=== PATIENT | female | born 1940 | race Two or more races ===

== ENCOUNTER → 2024-04-25 | Outpatient (CLI) | payer OTHER, SELFPAY ==
[2024-04-25 08:37] LABS: Glucose Estimated Average 186 mg/dL (80-131); Hemoglobin A1C 8.1 % Hgb (4.8-6.0)
[2024-04-25 09:27] LABS: Alanine Aminotransferase 15 U/L (10-49); Albumin, Serum 4.7 gm/dL (3.4-4.8); Alkaline Phosphatase 94 U/L (46-116); Anion Gap 10 (7-16); Aspartate Amino Transferase 14 U/L (0-34); BUN/Creatinine Ratio 40 Ratio (12-20); Bilirubin,Total 0.4 mg/dL (0.3-1.2); Blood Urea Nitrogen 28 mg/dL (9-23); Calcium 10.2 mg/dL (8.3-10.6); Calcium (Corrected) 10.2 mg/dL (8.5-10.1); Carbon Dioxide 26.7 mMol/L (20.0-31.0); Cardiac Risk Estimate 2.9 RATIO (3.7-5.6); Chloride 103 mMol/L (98-107); Cholesterol 180 mg/dL (132-200); Creatinine (Component) 0.7 mg/dL (0.6-1.3); Globulin 2.3 gm/dL (2.3-3.5); Glucose 158 mg/dL (74-106); HDL Cholesterol 62 mg/dL (40-60); LDL Cholesterol,Calculated 90 mg/dL (0-130); Osmolality,Calculated 287 (275-295); Potassium 4.5 mMol/L (3.4-5.1); Sodium 140 mMol/L (136-145); Triglycerides 141 mg/dL (30-150); eGFR > 60 See Note
[2024-04-25 09:42] LABS: Creatinine MALB Rnd Ur 18 mg/dL (30-125); Microalbumin Creat Ratio 222 mg/gCrea (<30); Microalbumin, Random Urine 40 mg/L (0-300)
== END | disposition home or self-care (01) ==
PROVIDERS: PCP Family Medicine; Referring Provider Family Medicine; Visit Provider Family Medicine
DX: E11.65 Type 2 diabetes mellitus with hyperglycemia (principal); E78.1 Pure hyperglyceridemia
CPT/HCPCS: 36415; 80053; 80061; 82043; 82570; 83036

== ENCOUNTER → 2024-06-01 | Outpatient (CLI) | payer OTHER, MEDICAID, SELFPAY ==
--- NOTE | 2024-06-01 10:45 | XR_ITS ---
Examination: Retroperitoneal ultrasound, complete Technique: Multiple high resolution grayscale images of the retroperitoneum obtained, including kidneys and bladder. Exam date and time:June 01, 2024 1059 hours INDICATIONS: Right flank pain 2 months, chronic kidney disease stage I diagnosis on laboratory examination FINDINGS: Right kidney 10.3 cm cortex 1.9 cm Midpole cyst 3.7 x 3.8 cm Left kidney 10.7 cm renal cortex 1.9 cm Upper pole cyst 4.1 x 3.8 cm mid to lower pole cyst 4.7 x 4.4 cm Moderate bilateral renal parenchymal scar formation No bladder mass or bladder calculi Bladder prevoid volume 259 cc postvoid volume 208 cc IMPRESSION: Moderate bilateral renal parenchymal scar formation, no hydronephrosis
== END | disposition home or self-care (01) ==
PROVIDERS: PCP Internal Medicine; Referring Provider Internal Medicine; Visit Provider Internal Medicine
DX: N28.89 Other specified disorders of kidney and ureter (principal)
CPT/HCPCS: 76770

== ENCOUNTER → 2024-07-03 | Outpatient (CLI) | payer OTHER, MEDICAID, SELFPAY ==
[2024-07-03 10:31] LABS: Albumin, Serum 4.6 gm/dL (3.4-4.8); Anion Gap 13 (7-16); BUN/Creatinine Ratio 37 Ratio (12-20); Blood Urea Nitrogen 33 mg/dL (9-23); Calcium 10.3 mg/dL (8.3-10.6); Calcium (Corrected) 10.3 mg/dL (8.5-10.1); Carbon Dioxide 27.9 mMol/L (20.0-31.0); Chloride 100 mMol/L (98-107); Creatinine (Component) 0.9 mg/dL (0.6-1.3); Glucose 115 mg/dL (74-106); Osmolality,Calculated 289 (275-295); Potassium 4.3 mMol/L (3.4-5.1); Sodium 141 mMol/L (136-145); eGFR > 60 See Note
[2024-07-03 10:37] LABS: Collection Type, Urine Clean Catch; Squamous Epithelial Cell,Urine 0 /hpf (0-5)
[2024-07-03 11:40] LABS: Bilirubin,Urine Negative (Negative); Blood,Urine Negative (Negative); Clarity,Urine Clear (Clear/Hazy); Color,Urine Lt-Yellow (Lt Yel-Yel); Glucose, Urine 4+ (Negative); Ketones,Urine 1+ (Negative); Leukocyte Esterase,Urine Negative (Negative); Nitrite,Urine Negative (Negative); Protein,Urine Trace (Neg - Trace); RBC,Urine 1 /hpf (0-3); Specific Gravity,Urine 1.022 (1.001-1.035); Urobilinogen,Urine Negative mg/dL (0.0-1.0); WBC,Urine 1 /hpf (0-5)
[2024-07-03 11:42] LABS: Creatinine,Random Urine 73 mg/dL (30-125)
== END | disposition home or self-care (01) ==
LOC: COPL 09:38
PROVIDERS: PCP Internal Medicine; Referring Provider Internal Medicine; Visit Provider Internal Medicine
DX: E11.9 Type 2 diabetes mellitus without complications (principal)
CPT/HCPCS: 36415; 80069; 81001; 82570

== ENCOUNTER 2024-09-15 11:39 | Observation (INO) | payer OTHER, MEDICAID, SELFPAY ==
[2024-09-15 11:53] VITALS: BP 150/79; PULSE 76; RESP 18; TEMP 37; O2SAT 97; BMI 27.6
--- NOTE | 2024-09-15 12:11 | XR_ITS ---
Examination: AP chest single view Technique one AP portable semiupright chest single view Date and time: September 15, 2024 12:48 PM Comparison March 24, 2010 INDICATIONS: Chest pain today. FINDINGS: Normal heart size Lungs are clear. The osseous structures are intact IMPRESSION: No active disease
--- NOTE | 2024-09-15 12:11 | XR_ITS ---
Examination: CTA carotids with intravenous contrast CTA brain, head with intravenous contrast. 2-D sagittal, coronal reconstructions. 3-D reconstructions. Exam date and time: 03/18/2024 1230 hours INDICATIONS: Stroke alert, onset focal neurologic deficit today CTDI: vol (mGy) 3 2 DLP: (mGycm) 437 Technique: Multiple CTA axial brain, head carotid images post intravenous contrast injection 75 cc, [id number]. 2-D sagittal, coronal reconstructions. 3-D reconstructions, 3-D post processing including vascular maximum intensity projection images. Low dose protocols were performed. One or more of the following dose reduction techniques were used; automated exposure control, adjustment of the mA and/or KV according to patient size, use of iterative reconstruction technique. Findings: Thyromegaly with poorly defined bilateral thyroid nodules No significant common carotid carotid bifurcation or internal carotid artery stenoses Dominant left vertebral artery with no critical vertebral artery stenoses in the neck Intracranial vertebral arteries basilar artery serves cerebral branches fill no large vessel occlusions Moderately heavy calcification juxtasellar internal carotid artery with no critical stenoses No cerebral occlusions involving middle cerebral M1 segments or trifurcation vessels as well as anterior cerebral arteries IMPRESSION: No significant neck arterial stenoses No cerebral large vessel arterial occlusions
--- NOTE | 2024-09-15 12:11 | EKG_ITS ---
[facility] Test Date: 2024-09-15 Pat Name: LIZ VIDES Department: Room: - Gender: Female Manager Reporting: : 1940 Requested By: Michelle Miles Order Number: [id number] Reading MD: Michelle Miles Measurements Intervals [place] Rate: 79 P: 43 KS: 175 QRS: 47 QRSD: 89 T: 64 QT: 367 QTc: 421 Interpretive Statements SINUS RHYTHM SEPTAL MYOCARDIAL INFARCTION , OF INDETERMINATE AGE [40+ ms Q WAVE IN V1/V2] No previous ECG available for comparison /store/S0/[id number].pdf
--- NOTE | 2024-09-15 12:11 | XR_ITS ---
Examination: CT brain head without contrast. 2-D sagittal coronal reconstructions Date and time of exam:September 15, 2024 1214 hours INDICATIONS: Stroke alert, onset focal neurologic deficit today including slurred speech beginning 9:00 AM CTDI: vol (mGy):45.9 DLP: (mGycm):924 Technique: Multiple CT axial sections of the brain have been obtained, 5 mm slice thickness. Contrast has not been administered. 2-D sagittal, coronal reconstructions have been obtained Low dose protocols were performed. One or more of the following dose reduction techniques were used; automated exposure control, adjustment of the mA and/or KV according to patient size, use of iterative reconstruction technique. Findings: No significant ventricular enlargement. Intra-axial or extra-axial hemorrhage density is not seen. No mass effect or midline shift Basal cisterns are not remarkable. Fourth ventricle is midline. Cranial vault intact. Impression: Negative for acute hemorrhage, mass effect or midline shift
--- NOTE | 2024-09-15 12:14 | PD.EDAMS ---
Altered Mental Status RME/HPI General Chief Complaint: Altered Mental Status Stated Complaint: sent by primary Kulwinder cunningham stroke Time Seen by Provider: 09/15/24 11:55 Arrival date/time: 09/15/24 11:39 RME / HPI RME / HPI narrative: 83-year-old female patient with significant history of CVA, diabetes mellitus, hypertension diabetes mellitus, was brought in by family for evaluation regarding possible strokelike symptoms. Patient last well-known time was 9:00 this morning, has expressive aphasia, associated with worsening facial droop on the right side. Patient denies any upper or lower extremity weakness. Patient also complained of headache severity moderate since 9:00 this morning. Currently not taking any blood thinner. She had a stroke more than 20 years ago according to the family. Stroke alert was initiated right away. Patient denies any recent fall or head trauma. Denies any fever. Denies any neck pain. Denies any chest pain. Related Data Allergies Allergy/AdvReac Type Severity Reaction Status Date / Time No Known Drug Allergies Allergy Verified 09/15/24 11:47 Review of Systems Review of Systems Narrative Review of Systems: Review of system reviewed and within normal limits except mentioned in HPI ED Exam Narrative Physical exam: VITAL SIGNS: Reviewed. GENERAL APPEARANCE: Alert and interactive, follows commands, no acute distress, mild expressive aphasia HEAD AND FACE: Right-sided facial droop ENT: PERRL, pink conjunctivitis, eyelid no trauma, Mucous membrane moist. NECK: Supple, nontender, no nuchal rigidity. CHEST: No tenderness, no crepitus, no paradoxical movement, no retractions. LUNGS: Clear, well ventilated, symmetric, no rales, no wheezing, no ronchi, no stridor, good breath sounds bilaterally. HEART: Regular rate, regular rhythm, no murmur, no gallops. ABDOMEN: Soft, positive bowel sounds, nondistended, no guarding, nontender, no rebound, no masses, RECTAL: Deferred. GENITAL: Deferred. NEUROLOGICAL: Gross motor function intact sensory function intact, Appropriate for age. MUSCULOSKELETAL: low back nontender, full range of motion. EXTREMITIES: Nontender, full range of motion. SKIN: Color pink, dry, no rash, no lacerations, no abrasions, no contusions. LYMPHATICS: Deferred. Course Quality Measures none Orders Category Date Time Status Bedside Blood Glucose NOW Care 09/15/24 12:11 Active COVID-19 Screening Questionnaire NOW Care 09/15/24 14:13 Active Applied Psychology Teacher NOW Care 09/15/24 12:11 Active Continuous Pulse Oximetry NOW Care 09/15/24 12:11 Active Decision to Admit X1 Care 09/15/24 14:13 Active EKG (ED ONLY) *Do not use* NOW Care 09/15/24 12:11 Completed In and Out Catheter NEEDED Care 09/15/24 12:11 Active Insert IV NOW Care 09/15/24 12:11 Active NIH Stroke Scale now Care 09/15/24 12:11 Active NPO NOW Care 09/15/24 12:11 Active Nurse Swallow Screen x1 Care 09/15/24 12:11 Active Consult to Neurology / Tele-Neurology Routine Cons 09/15/24 12:[address] angio stroke protocol Stat Exams 09/15/24 12:[address] stroke protocol Stat Exams 09/15/24 12:11 Completed EKG (ED Only) Stat Exams 09/15/24 12:11 Draft XR chest 1V portable Stat Exams 09/15/24 12:11 Completed CBC Stat Lab 09/15/24 12:28 Completed Comprehensive Metabolic Panel Stat Lab 09/15/24 12:28 Completed Drug Screen,Urine Stat Lab 09/15/24 12:11 Ordered HCG Titer if Positive Stat Lab 09/15/24 12:28 Completed Magnesium Stat Lab 09/15/24 12:28 Completed Partial Thromboplastin Time Stat Lab 09/15/24 12:28 Completed Prothrombin Time with INR Stat Lab 09/15/24 12:28 Completed Troponin I Stat Lab 09/15/24 12:28 Completed Urinalysis Stat Lab 09/15/24 12:11 Ordered Urine Culture Stat Lab 09/15/24 12:11 Ordered Acetaminophen Tab [Tylenol ES Tab] Med 09/15/24 14:03 Discontinued 1,000 mg PO X1 ONE Aspirin [Ecotrin] Med 09/15/24 14:00 Discontinued 81 mg PO X1 ONE Labetalol IV [Trandate IV] Med 09/15/24 12:10 Active 10 mg IVP Q15M PRN Ondansetron Inj [Zofran Inj] Med 09/15/24 12:10 Active 4 mg IVP Q4HR PRN Oxygen Delivery NOW RT 09/15/24 12:11 Active Vital Signs Vital signs: Vital Signs Temperature 98.6 F 09/15/24 11:53 Pulse Rate 76 09/15/24 11:53 Respiratory Rate 18 09/15/24 11:53 Blood Pressure 150/79 H 09/15/24 11:53 Pulse Oximetry (%) 97 09/15/24 11:53 Oxygen Delivery Method Room Air 09/15/24 11:53 Altered Mental Status MDM Narrative MDM Narrative:: 83-year-old female patient with significant history of CVA, diabetes mellitus, hypertension , was brought in by family for evaluation regarding possible strokelike symptoms. Patient last well-known time was 9:00 this morning, has expressive aphasia, associated with worsening facial droop on the right side. Patient denies any upper or lower extremity weakness. Patient also complained of headache severity moderate since 9:00 this morning. Currently not taking any blood thinner. She had a stroke more than 20 years ago according to the family. Stroke alert was initiated right away. Patient denies any recent fall or head trauma. Denies any fever. Denies any neck pain. Denies any chest pain. EKG as interpreted by me shows sinus rhythm, ventricular to 79 bpm, OH interval 175 MS, no ST segment elevation depression noted. CT scan of the head came back unremarkable. CT angiogram of the head and neck also came back normal. CBC no leukocytosis noted CMP unremarkable. I personally reviewed and interpreted the x-ray of this patient. There is no acute abnormalities found, no infiltrates no pneumothorax no hemothorax normal chest x-ray. Review of other structures was without significant abnormal findings also. I additionally reviewed the radiologist report and agree with the interpretation. I spoke with teleneurologist, who advised me to give this patient 81 mg of aspirin. Patient is not a candidate for thrombolytic at this time. Patient was also given Tylenol for headache Plan care discussed with the family who agrees to be admitted for stroke workup. Patient data External records reviewed:: None Clinical information provided by:: patient and family Social determinants that could affect healthcare access:: none Patient has the following chronic illnesses:: History of CVA, diabetes mellitus hypertension How is presenting disease/condition affected by chronic disease/condition?: exacerbated by Evaluation data The following diagnostics were reviewed and interpreted by me:: lab results, radiology exam(s) and EKG tracing(s) Lab and/or radiology exams considered but not ordered:: None Interpretation Summary: See results MDM Medications / Prescriptions Medications or Prescriptions considered but not ordered:: None Medication administrations:: Medication Administration History Labetalol HCl (Labetalol Inj 5 Mg/Ml Vial 20 Ml) 10 mg IVP Q15M PRN PRN Reason: HYPER Ondansetron HCl (Ondansetron Inj 2 Mg/Ml Inj 2 Ml) 4 mg IVP Q4HR PRN PRN Reason: NAUSEA OR VOMITING Stop: 10/15/24 12:09 Discontinued Medications Acetaminophen (Acetaminophen 500 Mg Tablet) 1,000 mg PO X1 ONE Stop: 09/15/24 14:04 Last Admin: 09/15/24 14:10 Dose: 1,000 mg Documented By: CROW Aspirin (Aspirin Ec 81 Mg Tabec) 81 mg PO X1 ONE Stop: 09/15/24 14:01 Last Admin: 09/15/24 14:10 Dose: 81 mg Documented By: CROW Labetalol, aspirin Consultations Consultation(s) initiated? (list below): No Diagnosis Differential diagnosis altered mental status: altered mental status and delirium Most likely diagnosis given after review of the tests above:: Confusion Admission Indicated Admission indicated?: indicated Admission Request Was there a request for admission?: Yes Admission Attestation Admission request attestation: Discussed case with Hospitalist service regarding admission. Discussed patients ED course, exam findings, labs, and radiology results. The Hospitalist [agrees, to accept the patient for admission. Disposition Plan Disposition Plan: Admit Discharge Plan Plan Patient Disposition: Admit Acute Care w/in Hospital Discharge Disposition comment: Stable Prescriptions/Referrals Referrals: No Primary/Family,Physician [Primary Care Provider] - In 1 week Problem List Clinical Impression: Confusion Patient/Caregiver Discharge Instructions Print Language: Greenlandic Stand Alone Forms: Kristina Award Info., Patient Portal Info Letter
[2024-09-15 12:35] LABS: Basophils # (Auto) 0.0 Thou/mm3 (0.0-0.2); Basophils % (Auto) 0 % (0-2.5); Eosinophils # (Auto) 0.1 Thou/mm3 (0.0-0.5); Eosinophils % (Auto) 2 % (0-10); Hematocrit 39.5 % (36.0-46.0); Hemoglobin 13.5 g/dL (12.0-16.0); Immature Granulocytes Auto 0.03 Thou/mm3 (0.00-0.00); Lymphocytes # (Auto) 2.4 Thou/mm3 (1.0-4.8); Lymphocytes % (Auto) 34 % (10-50); Mean Corpuscular HGB Conc 34.2 g/dl (31.0-37.0); Mean Corpuscular Hemoglobin 27.0 pg (25.0-35.0); Mean Corpuscular Volume 79 fL (80-100); Monocytes # (Auto) 0.5 Thou/mm3 (0.0-0.8); Monocytes % (Auto) 8 % (0-12); Neutrophils # (Auto) 3.9 Thou/mm3 (1.8-7.7); Neutrophils % (Auto) 56 % (37-80); Nucleated Red Blood Cell # 0.00 Thou/mm3 (0.00-0.00); Nucleated Red Blood Cell % 0 /100 WBC (0); Platelet Count 302 Thou/mm3 (140-440); RDW Standard Deviation 43.0 fL (36.4-46.3); Red Blood Count 5.00 Miln/mm3 (4.00-5.20); White Blood Count 7.0 Thou/mm3 (3.6-11.0)
[2024-09-15 13:00] LABS: Alanine Aminotransferase 12 U/L (10-49); Albumin, Serum 4.3 gm/dL (3.4-4.8); Albumin/Globulin Ratio 2.0 (1.2-2.2); Alkaline Phosphatase 71 U/L (46-116); Anion Gap 16 (7-16); Aspartate Amino Transferase 19 U/L (0-34); BUN/Creatinine Ratio 26 Ratio (12-20); Bilirubin,Total 0.6 mg/dL (0.3-1.2); Blood Urea Nitrogen 26 mg/dL (9-23); Calcium 10.0 mg/dL (8.3-10.6); Calcium (Corrected) 10.0 mg/dL (8.5-10.1); Carbon Dioxide 23.9 mMol/L (20.0-31.0); Chloride 102 mMol/L (98-107); Creatinine (Component) 1.0 mg/dL (0.6-1.3); Estimated Creatinine Clearance 36.9 mL/min (>60); Globulin 2.2 gm/dL (2.3-3.5); Glucose 133 mg/dL (74-106); INR 1.0 (0.9-1.3); Magnesium 1.6 mg/dL (1.6-2.6); Osmolality,Calculated 289 (275-295); Partial Thromboplastin Time 27.2 Seconds (22.0-36.0); Potassium 4.0 mMol/L (3.4-5.1); Prothrombin Time 10.7 Seconds (9.0-12.2); Sodium 142 mMol/L (136-145); Total Protein 6.5 gm/dL (5.7-8.2); Troponin I < 0.002 ng/mL (0.0-0.045); eGFR 57 See Note
[2024-09-15 13:32] LABS: HCG Titer if Positive Negative
--- NOTE | 2024-09-15 13:49 | ESCONSULT_ITS ---
Tele Neuro Consultation Consultation Date 09/15/24 Most Recent Vital Signs Last Vital Signs Temp 98.6 F 09/15/24 11:53 Pulse 76 09/15/24 11:53 Resp 18 09/15/24 11:53 BP 150/79 H 09/15/24 11:53 Pulse Ox 97 09/15/24 11:53 O2 Del Method Room Air 09/15/24 11:53 Laboratory-Coagulation Panel PT 10.7 Seconds (9.0-12.2) 09/15/24 12:28 INR 1.0 (0.9-1.3) 09/15/24 12:28 APTT 27.2 Seconds (22.0-36.0) 09/15/24 12:28 Consultation Narrative [facility] Tele[facility]urology Consult Services Patient Name:???melvi ignacio Date of :???1940 Date of Service:???09/15/2024 12:09:24 Diagnosis:?F05.8 - Other delirium Impression: ?83 year old female who presents to the hospital because of confusion. Presentation may be due to underlying metabolic or infectious encephalopathy. Our recommendations are outlined below. Recommendations: ? Stroke/Telemetry Floor ? Neuro Checks (Q4) ? Bedside Swallow Eval ? DVT Prophylaxis ? IV Fluids, Normal Saline ? Head of Bed 30 Degrees ? Euglycemia and Avoid Hyperthermia (PRN Acetaminophen) ? Initiate or continue Aspirin 81 MG daily Sign Out: ? Discussed with Emergency Department Provider Advanced Imaging: CTA Head and Neck Completed. LVO:No Patient is not a candidate for SHERRY Metrics: Last Known Well: 09/15/2024 08:30:00 Dispatch Time: 09/15/2024 12:09:24 Arrival Time: 09/15/2024 11:39:00 Initial Response Time: 09/15/2024 12:14:17Symptoms: confusion. Initial patient interaction: 09/15/2024 12:18:00 NIHSS Assessment Completed: 09/15/2024 12:44:54Patient is not a candidate for Thrombolytic. Thrombolytic Medical Decision: 09/15/2024 12:44:56Patient was not deemed candidate for Thrombolytic because of following reasons: Stroke severity too mild (non-disabling) . CT Head: I personally reviewed all the CT images that were available to me and it showed: no acute hemorrhage or large territory infarct. Primary Provider Notified of Diagnostic Impression and Management Plan on: 09/15/2024 12:49:51 History of Present Illness:Patient is a 83 year old Female. Patient was brought by private transportation with symptoms of confusion. 83 year old female with a history of atrial fibrillation, CAD, DM II, and prior stroke who presents to the hospital because of confusion. This morning patient felt normal and was seen cleaning the garden floor around 8:30. At 9am family noticed that patient had left the stove on. She also seemed to be speaking and not making sense. On teleneuro evaluation she had some trouble understanding tasks but she was able to name things and describe a picture without difficulty. She did not have any focal weakness, numbness, visual field defect. or limb ataxia. Past Medical History: ?Hypertension ?Diabetes Mellitus ?Stroke Medications: No Anticoagulant use? No Antiplatelet use Reviewed EMR for current medications Allergies:? Reviewed Social History: Drug Use: No Family History: There is no family history of premature cerebrovascular disease pertinent to this consultation ROS : 14 Points Review of Systems was performed and was negative except mentioned in HPI. Past Surgical History: There Is No Surgical History Contributory To Today?s Visit Examination: BP(150/79),?Pulse(76),?Blood Glucose(140) 1A: Level of Consciousness - Alert; keenly responsive?+ 0 1B: Ask Month and Age - Both Questions Right?+ 0 1C: Blink Eyes & Squeeze Hands - Performs Both Tasks?+ 0 2: Test Horizontal Extraocular Movements - Normal?+ 0 3: Test Visual Yost - No Visual Loss?+ 0 4: Test Facial Palsy (Use Grimace if Obtunded) - Minor paralysis (flat alexandre olabial fold, smile asymmetry)?+ 1 5A: Test Left Arm Motor Drift - No Drift for 10 Seconds?+ 0 5B: Test Right Arm Motor Drift - No Drift for 10 Seconds?+ 0 6A: Test Left Leg Motor Drift - No Drift for 5 Seconds?+ 0 6B: Test Right Leg Motor Drift - No Drift for 5 Seconds?+ 0 7: Test Limb Ataxia (FNF/Heel-Unger) - No Ataxia?+ 0 8: Test Sensation - Normal; No sensory loss?+ 0 9: Test Language/Aphasia - Normal; No aphasia?+ 0 10: Test Dysarthria - Normal?+ 0 11: Test Extinction/Inattention - No abnormality?+ 0 NIHSS Score:?1 NIHSS Free Text :?facial droop is from old stroke. Pre-Morbid Modified Sunspot Scale:1 Points = No significant disability despite symptoms; able to carry out all usual duties and activities Spoke with :?Dr. Segovia This consult was conducted in real time using interactive audio and video technology. Patient was informed of the technology being used for this visit and agreed to proceed. Patient located in hospital and provider located at home/office setting. Patient is being evaluated for possible acute neurologic impairment and high probability of imminent or life-threatening deterioration. I spent total of 29 minutes providing care to this patient, including time for face to face visit via telemedicine, review of medical records, imaging studies and discussion of findings with providers, the patient and/or family. Dr Julissa Barragan [facility] For Inpatient follow-up with [facility] physician please call [facility] at . As we are not an outpatient service for any post hospital discharge needs please contact the hospital for assistance. If you have any questions for the [facility] physicians or need to re consult for clinical or diagnostic changes please contact us via [facility] at .
[2024-09-15 14:00] VITALS: BP 188/88; PULSE 78; RESP 16; TEMP 36.9; O2SAT 96
[2024-09-15] MEDS: ASPIRIN EC 81 MG TABEC PO (14:10)
[2024-09-15] MEDS: ACETAMINOPHEN 500 MG TABLET 1000 MG PO (14:10)
--- NOTE | 2024-09-15 15:28 | PC.CC ---
Patient is a 83 year-old female who presents to the hospital for possible stroke. DOROTEOWKellie and REHABILITATION TECH Student Ciarra made tzek-[id number] contact with patient. ASW introduced self, role, and reason for visit. Patient appeared alert and oriented to self, location, and situation. Patient provided consent for REHABILITATION TECH to remain in the room during assessment. Patient was pleasant and engaged in initial assessment. Patient confirmed information on demographics and reports to living with her , Naga Marin and daughter, Karishma Hendrix. Patient reports that in the event she is unable to make her own medical decisions her daughter, Simona Hendrix would be her medical decision maker. Patient reports that prior to todays incident she was able to ambulate independently and complete her own ADLs. Patient does not require any DME. Patient's primary provider is Speedy York and her pharmacy of choice is [facility]. Upon discharge patient plance to return home. support services manager to follow up with any discharge needs.
--- NOTE | 2024-09-15 15:38 | ECHO_ITS ---
Transthoracic Echo Report Ht (in): 60 Wt (lb): 141 Exam Location: Echo Lab Status: Inpatient Carriage Feeder: Xochitl Deluna Indications: Procedure Performed: BP: 166 / 85 HR: 80 Technical Quality: Technically difficult study MEASUREMENTS (Male / Female) Normal Values 2D ECHO LV Diastolic Diameter PLAX 4.4 cm 4.2 - 5.9 / 3.9 - 5.3 cm LV Systolic Diameter PLAX 3.0 cm IVS Diastolic Thickness 0.9 cm 0.6 - 1.0 / 0.6 - 0.9 cm LVPW Diastolic Thickness 1.0 cm 0.6 - 1.0 / 0.6 - 0.9 cm LV Relative Wall Thickness 0.4 LVOT Diameter 1.7 cm Aortic Root Diameter 2.9 cm LA Volume Index 17.6 cm?/m? 16 - 28 cm?/m? M-MODE Aortic Root Diameter MM 2.6 cm LA Systolic Diameter MM 2.5 cm LA Ao Ratio MM 1.0 AV Cusp Separation MM 1.5 cm DOPPLER AV Peak Velocity 123.5 cm/s AV Peak Gradient 6.1 mmHg AV Mean Gradient 4.0 mmHg AV Velocity Time Integral 33.8 cm AI Peak Velocity 163.0 cm/s AI Peak Gradient 10.6 mmHg AI Pressure Half Time 748.0 ms LVOT Peak Velocity 93.0 cm/s LVOT Peak Gradient 3.5 mmHg LVOT Velocity Time Integral 21.9 cm LVOT Cardiac Index 2387.9 cm?/min?m? AV Area Cont Eq vti 1.5 cm? AV Area Cont Eq pk 1.7 cm? MV Area PHT 3.6 cm? Mitral E Point Velocity 57.7 cm/s Mitral A Point Velocity 98.5 cm/s Mitral E to A Ratio 0.6 LV E' Lateral Velocity 7.7 cm/s Mitral E to LV E' Lateral Ratio 7.5 LV E' Septal Velocity 5.8 cm/s Mitral E to LV E' Septal Ratio 10.0 TR Peak Velocity 247.0 cm/s TR Peak Gradient 24.4 mmHg FINDINGS Left Ventricle Normal left ventricular size, wall thickness, systolic function with no obvious regional wall motion abnormalities. The ejection fraction is visually estimated at 65% There is grade I diastolic dysfunction of the left ventricle (impaired relaxation pattern). Right Ventricle The right ventricle is normal in size and systolic function. The estimated right ventricular systolic pressure, 29 mmHg. RAP 5. Left Atrium The left atrium is normal by two-dimensional, color flow and Doppler imaging with no structural abnormalities, no thrombus formation present. Right Atrium The right atrium is normal by two-dimensional imaging, color flow and Doppler imaging with no structural abnormalities, no thrombus formation present. Atrial Septum The interatrial septum appears normal with no evidence of a shunt. Aorta The aorta is normal by two-dimensional, color flow and Doppler interrogation. Mitral Valve Mild mitral annular calcification. Trace mitral regurgitation. Aortic Valve Trace aortic valve regurgitation. Tricuspid Valve The tricuspid valve is normal by two-dimensional, color flow and Doppler interrogation. There is mild tricuspid valve regurgitation. Pulmonic Valve The pulmonic valve is not well visualized. There is no significant pulmonic valve regurgitation. Vessels The pulmonary artery appears normal. The inferior vena cava pulmonary and hepatic veins appear normal. Pericardium The pericardium is normal by two-dimensional imaging. There is no significant pericardial effusion. CONCLUSIONS Indication: stroke Normal left ventricular size and function. Approximate ejection fraction is 65%. Negative bubble study. No intracardiac shunts PFO detected There is grade I diastolic dysfunction. The RV is normal in size and systolic function. T Mild MAC with trivial MR Mild TR. mild AR Mayuri Mcduffie (Electronically Signed) Final Date: 16 September 2024 18:27
[2024-09-15 15:48] VITALS: BP 166/85; PULSE 80; RESP 18; TEMP 36.6; O2SAT 98
--- NOTE | 2024-09-15 15:57 | ESHP_ITS ---
<Statement entered by Jeffery Lipscomb MD - 09/15/24 23:01> Patient seen and examined at bedside. I discussed and supervised with the technical internship physician who took care of this patient. I personally saw and examined the patient. I agree with most of the assessment and plan. Patient presented from home due to acute aphasia and confusion per family. 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 At time of exam patient was alert and properly responsive. Neurology consulted. Head CT negative, MRI pending. Started on Lipitor and aspirin. Admitted for further stroke workup, including echo with bubble study, routine tests, PT/OT/ST. BP elevated, within range of permissive HTN. Report of afib on teleneuro report, although patient denies at bedside. No other known history of afib, not on anticoags or rate/rhythm control meds. Will monitor on tele. Plan of care discussed with attending Dr. Regan. Jeffery Lipscomb MD PGY-2 Documentation for date of: 09/15/24 HPI History of Present Illness Chief complaint: Confusion and speech difficulty - rule out acute stroke History of present illness: 83-year-old female with a history of remote CVA (20+ years ago), hypertension, diabetes mellitus type 2, hyperlipidemia, and possible atrial fibrillation, was brought in by family for evaluation of acute confusion and expressive aphasia. She was last seen at her baseline around 08:30 AM while cleaning around the garden. Around 09:00 AM, the family noticed she left the stove on and began speaking incoherently. They described her as having difficulty forming appropriate words and sentences, needing repetition or rephrasing to understand simple instructions. Her speech remained altered throughout the morning. They also noted a right-sided facial droop, though this is reportedly chronic and consistent with her prior stroke. She complained of a moderate headache that started around the same time as her confusion. There were no reported visual field deficits, extremity weakness, numbness, dizziness, falls, trauma, or seizures. She denied chest pain or palpitations. Her family confirmed this episode was different from any prior events and prompted immediate ED evaluation. ED Course: On arrival to the ED, a stroke alert was activated due to concerns for acute neurologic symptoms with last known well at 08:30 AM. On exam, she was alert with mild expressive aphasia and chronic right facial droop. NIH Stroke Scale was 1, with the only finding being the facial droop, which was determined to be baseline by teleneurology. She had no focal motor deficits, no sensory loss, and no signs of limb ataxia. A non-contrast CT head and CTA head/neck were obtained and were both unremarkable, showing no acute infarct, hemorrhage, or large vessel occlusion. Labs including CBC, CMP, coagulation panel, and blood glucose were within normal limits. EKG showed normal sinus rhythm with no ischemic changes. She was evaluated by teleneurology, who recommended initiating aspirin 81 mg and admission for stroke workup. The patient was not deemed a candidate for thrombolytics due to mild, non-disabling symptoms. She was given Tylenol for headache relief. Family was updated and agreed with the plan to admit for further evaluation and monitoring. ROS: * Neuro: Expressive aphasia, confusion, headache * All other systems reviewed and negative unless noted above Past Medical History: * History of CVA per patient about 20 years ago * Hypertension * Diabetes Mellitus Type 2 * Hyperlipidemia * Possible Atrial Fibrillation, not confirmed Medications: * Simvastatin 20 mg * Losartan 100 mg * Bumetanide 1 mg * Metformin 1000 mg * Jardiance * Kerendia * Ozempic (No aspirin or anticoagulants prior to admission per patient) Allergies: NKDA Surgical History: Non-contributory Family History: No premature cardiovascular disease Social History: Denies smoking, alcohol, or drug use Exam Vital Signs Temp Pulse Resp BP Pulse Ox O2 Del Method 97.9 F 80 18 166/85 H 98 Room Air 09/15/24 15:48 09/15/24 15:48 09/15/24 15:48 09/15/24 15:48 09/15/24 15:48 09/15/24 15:48 Narrative Exam General: Elderly female, alert, mildly confused, cooperative Neuro: Alert, mild expressive aphasia, chronic right nasolabial flattening, CN II?XII grossly intact, no focal motor/sensory deficits, no ataxia CV: RRR, no murmurs Resp: Clear to auscultation GI: Soft, non-tender, non-distended Skin: Warm, dry, intact Extremities: Full ROM, no edema Psych: Delayed responses but appropriate affect Results: Labs 09/16/24 05:10 09/16/24 05:10 Labs: Short CBC 09/15/24 Range/Units 12:28 WBC 7.0 (3.6-11.0) Thou/mm3 Hgb 13.5 (12.0-16.0) g/dL Hct 39.5 (36.0-46.0) % Plt Count 302 (140-440) Thou/mm3 BMP 09/15/24 12:28 Sodium 142 Potassium 4.0 Chloride 102 Carbon Dioxide 23.9 BUN 26 H Creatinine 1.0 Glucose 133 H Calcium 10.0 Cardiac Enzymes 09/15/24 Range/Units 12:28 Troponin I < 0.002 (0.0-0.045) ng/mL Liver Function 09/15/24 Range/Units 12:28 Total Bilirubin 0.6 (0.3-1.2) mg/dL AST 19 (0-34) U/L ALT 12 (10-49) U/L Alkaline Phosphatase 71 (46-116) U/L Albumin 4.3 (3.4-4.8) gm/dL Quality Measures Quality Measures none Advance care planning discussed with:: patient and child (grandchild) Medications Home Medications and Allergies Allergies Allergy/AdvReac Type Severity Reaction Status Date / Time No Known Drug Allergies Allergy Verified 09/15/24 11:47 Visit Medications Acetaminophen (Acetaminophen 325 Mg Tablet) 650 mg PO Q6H PRN PRN Reason: Fever >100.4 Stop: 10/15/24 15:31 Acetaminophen (Acetaminophen 325 Mg Tablet) 650 mg PO Q6H PRN PRN Reason: PAIN SCALE 1-3 (mild Stop: 10/15/24 15:31 Hydrocodone Bitart/Acetaminophen (Hydrocodone/Apap 5/325 Tablet) 1 tab PO Q4HR PRN PRN Reason: PAIN SCALE 4-6 (Moderate Stop: 09/20/24 15:31 Aspirin (Aspirin Ec 81 Mg Tabec) 81 mg PO QDAY [facility] Stop: 10/16/24 08:59 Heparin Sodium (Porcine) (Heparin Sod Inj 5000 Unit/Ml Vial) 5,000 unit SC Q8HR [facility] Stop: 09/29/24 21:59 Sodium Chloride (Ns) 1,000 mls @ 75 mls/hr IV .[id number] [facility] Stop: 10/15/24 15:44 Labetalol HCl (Labetalol Inj 5 Mg/Ml Vial 20 Ml) 10 mg IVP Q15M PRN PRN Reason: HYPER Ondansetron HCl (Ondansetron Inj 2 Mg/Ml Inj 2 Ml) 4 mg IVP Q4HR PRN PRN Reason: NAUSEA OR VOMITING Stop: 10/15/24 12:09 Sennosides (Senna Tablet) 1 tab PO QDAY PRN; Protocol PRN Reason: constipation Stop: 10/15/24 15:31 Discontinued Medications Acetaminophen (Acetaminophen 500 Mg Tablet) 1,000 mg PO X1 ONE Stop: 09/15/24 14:04 Last Admin: 09/15/24 14:10 Dose: 1,000 mg Aspirin (Aspirin Ec 81 Mg Tabec) 81 mg PO X1 ONE Stop: 09/15/24 14:01 Last Admin: 09/15/24 14:10 Dose: 81 mg Assessment & Plan Plan 83F with remote CVA, HTN, DM2 presenting with acute-onset confusion, expressive aphasia, and new right facial droop. Imaging negative, NIHSS 1. Not a candidate for tPA. #Altered Mental Status / Possible Acute Stroke 83-year-old female with history of HTN, DM2, and prior remote CVA presenting with acute confusion, expressive aphasia, and new right facial droop. CT head and CTA head/neck showed no acute hemorrhage or large vessel occlusion. NIHSS score: 1. She was not a candidate for thrombolytics due to last known well >4.5 hours prior to evaluation and non-disabling symptoms. Teleneurology and in-house neurology (Dr. Smith) were consulted. Facial droop and aphasia were confirmed to be new. She was started on aspirin 81 mg daily and admitted to telemetry for monitoring. Her CHADS2-VASc score is 5 (age >75 = 2, female = 1, HTN = 1, DM2 = 1), indicating high risk for cardioembolic stroke. No home anticoagulation or antiplatelet prior to admission. Plan: * Admit to telemetry for stroke monitoring * Neuro checks Q4H * DVT prophylaxis with Lovenox 40 mg SC daily * Head of bed 30? * Maintain permissive hypertension x24 hrs ? hold home antihypertensives unless BP >220/120 * Tylenol PRN for headache and fever prevention * Maintain euglycemia ? hold metformin and Ozempic if needed * Start aspirin 81 mg daily * Start atorvastatin (Lipitor) 40 mg nightly * A1c pending; lipid panel: triglycerides 126, LDL pending; LDL goal <70 * TSH normal * MRI brain pending to assess for ischemia not seen on CT * Echocardiogram to evaluate for embolic source (e.g., AFib, LV thrombus) * PT/OT evaluations * Speech therapy for aphasia and bedside swallow screen * Continue to follow neurology recommendations #CVA, history per patient 22-year-old stroke with full functional recovery Plan: * Secondary prevention: lipid panel, A1c, lifestyle counseling * Echo + telemetry to assess for embolic source #Hypertension On losartan 100 mg BP 166/85 in ED Plan: * Hold meds for 24 hours * Allow permissive hypertension * Monitor BP #Diabetes Mellitus Type 2 On metformin, Jardiance, Ozempic BG 140 Plan: * Start inulin sliding scales * Monitor glucose * Hold metformin if contrast repeated or KIP develops * Check A1c #Hyperlipidemia * Start lipitor 40 mg hs * Recheck lipid panel #Complex Migraine Moderate intensity, started with neurologic symptoms Plan: * Continue Tylenol PRN * Monitor for worsening Health Maintenance * Disposition: Stroke unit admission * Diet: Regular if bedside swallow cleared * DVT prophylaxis: SCDs * GI prophylaxis: * Code status: Full ----- Plan discussed with attending physician Dr. Regan and senior resident Dr. Francis MD PGY-1 Internal Medicine Attending Provider Attestation/Addendum I, Danna Regan DO, attest that I was physically present for the pollack portions of the service and evaluated the patient with the resident and I reviewed and discussed the case with the resident and agree with the resident's findings and plans of care as documented above Patient is an 83-year-old female with past medical history of CVA hypertension, type 2 diabetes, who presented to the ED due to aphasia. Per family member at bedside, patient appeared confused and unable to speak this morning. Patient was subsequently brought to the ED due to concern and aphasia. Stroke alert was called in the ED. CT head was done and showed no acute intracranial findings. Patient's speech appeared to return at baseline, but patient complained of headache and pressure behind her eyes. She denies any changes in vision. She is noted to have a right facial droop that appears to be chronic per family patient denies any history of migraines otherwise. Patient was able to answer my questions appropriately on exam. Muscle strength is 5/5 in all 4 extremities. Gross sensation intact. Will admit to telemetry for further workup of acute CVA. Will place patient on aspirin and statin. will place patient on cardiac monitoring and obtain echocardiogram as patient has questionable history of arrhythmia. Will obtain MRI neurology recommendations.
[2024-09-15 16:06] LABS: Collection Type, Urine Clean Catch; Squamous Epithelial Cell,Urine 0 /hpf (0-5)
[2024-09-15 16:15] LABS: Bilirubin,Urine Negative (Negative); Blood,Urine Negative (Negative); Clarity,Urine Clear (Clear/Hazy); Color,Urine Colorless (Lt Yel-Yel); Glucose, Urine 4+ (Negative); Ketones,Urine 1+ (Negative); Leukocyte Esterase,Urine Negative (Negative); Nitrite,Urine Negative (Negative); PH,Urine 8.0 (5.0-7.0); Protein,Urine Negative (Neg - Trace); RBC,Urine 9 /hpf (0-3); Specific Gravity,Urine 1.036 (1.001-1.035); Urobilinogen,Urine Negative mg/dL (0.0-1.0); WBC,Urine 2 /hpf (0-5)
[2024-09-15] MEDS: SODIUM CHLORIDE 0.9% 1000 ML 1,000 ML 75 ML IV (16:19)
[2024-09-15 16:21] LABS: Amphetamine/Methamp Scrn,U Negative (Negative); Barbiturate Screen,Urine Negative (Negative); Benzodiazepines Screen,Urine Negative (Negative); Benzoylecgonine Screen, Ur Negative (Negative); Fentanyl Screen,Urine Negative (Negative); Opiate Screen,Urine Negative (Negative); THC Screen,Urine Negative (Negative)
--- NOTE | 2024-09-15 16:38 | PD.RESCONSUL ---
HPI Data of Consult Requesting Physician: Danna Regan DO Admitting Provider: Danna Regan DO Attending Provider: Danna Regan DO Primary Care Provider: Physician No Primary/Family Consult Narrative History of present illness: Ms. Delarosa is an 83 y/o woman with PMH CVA (20+ years ago), hypertension, diabetes mellitus type 2, hyperlipidemia, and possible atrial fibrillation, was brought in by family for evaluation of acute confusion and aphasia. LKAW 08:30 AM 09/15. Around 09:00 AM, the family noticed she left the stove on and began speaking incoherently. They described her as having difficulty forming appropriate words and sentences, needing repetition or rephrasing to understand simple instructions. Her speech remained altered throughout the morning. They also noted a right-sided facial droop, though this is reportedly chronic and consistent with her prior stroke. She complained of a moderate headache that started around the same time as her confusion. There were no reported visual field deficits, extremity weakness, numbness, dizziness, falls, trauma, or seizures. She denied chest pain or palpitations. Her family confirmed this episode was different from any prior events and prompted immediate ED evaluation. ED Course: On arrival to the ED, a stroke alert was activated due to concerns for acute neurologic symptoms with last known well at 08:30 AM. On exam, she was alert with mild expressive aphasia and chronic right facial droop. NIHSS 1 (facial droop, chronic, present at baseline). She had no focal motor deficits, no sensory loss, and no signs of limb ataxia. A non-contrast CT head and CTA head/neck were obtained and were both unremarkable, showing no acute infarct, hemorrhage, or large vessel occlusion. Labs including CBC, CMP, coagulation panel, and blood glucose were within normal limits. EKG showed normal sinus rhythm with no ischemic changes. She was evaluated by teleneurology, who recommended initiating aspirin 81 mg and admission for stroke workup. The patient was not deemed a candidate for thrombolytics due to mild, non-disabling symptoms. She was given Tylenol for headache relief. Family was updated and agreed with the plan to admit for further evaluation and monitoring. Patient was evaluated at bedside. She reports no new symptoms. Patient accompanied by son who reports complete resolution of aphasia. Patient denies headache, acute changes in vision, paresthesias, weakness, palpitations, chest pain, abdominal pain. Denies smoking, alcohol, or recreational drug use. Of note, patient started Ozempic 2-3 months ago. cc:: cc: Danna Regan DO Review of Systems Review of Systems Narrative Review of Systems: 14 point review of systems negative other than HPI Exam Vital Signs Temp Pulse Resp BP Pulse Ox O2 Del Method 97.9 F 80 18 166/85 H 98 Room Air 09/15/24 15:48 09/15/24 15:48 09/15/24 15:48 09/15/24 15:48 09/15/24 15:48 09/15/24 15:48 Narrative Exam General: No acute distress, well nourished Eye: PERRL, EOMI, normal conjunctiva, no scleral icterus HENT: Normocephalic, atraumatic, hearing intact to conversation at normal volume, moist oral mucosa Neck: Supple, non-tender, no JVD, no lymphadenopathy Lungs: Non-labored respirations, symmetric chest rise Heart: Peripheral pulses intact bilaterally Abdomen: Soft, non-tender, non-distended Musculoskeletal: Normal range of motion and strength Skin: Skin is warm, dry, no rashes or lesions. Psychiatric: Cooperative, appropriate mood and affect Neurologic: Mental status: Orientation: AOx2 Communication: Patient is cooperative and can follow simple instructions Language: Speech fluent, normal rate and volume, comprehension intact Cranial nerves: CN II: Visual florence intact CN III: Pupils equal, round, and reactive to light CN III, IV, : No gaze deviation, no nystagmus Horizontal pursuit: intact Vertical pursuit: intact Ptosis: none CN V: Facial sensation to light touch intact bilaterally at the forehead, cheeks, and jaw line CN VII: Right nasolabial flattening (chronic) CN VIII: Able to hear and respond to conversation at normal volume, intact to finger rub CN IX, X: Palate elevation symmetric, uvula midline CN XI: Head turn and shoulder shrug strong, symmetric bilaterally CN XII: Normal tongue protrusion without deviation, no fasciculations Motor: Normal bulk and tone No atrophy No abnormal movements or fasciculations Muscle strength: Shoulder abduction: R 5/5 L 5/5 Elbow flexion: R 5/5 L 5/5 Elbow extension: R 5/5 L 5/5 Hip flexion: R 5/5 L 5/5 Hip extension: R 5/5 L 5/5 Sensory: RUE: Light touch intact LUE: Light touch intact RLE: Light touch intact LLE: Light touch intact Reflexes: Biceps (C5-6): R 2+ L 2+ Brachioradialis (C5-6): R 2+ L 2+ Triceps (C7-8): R 2+ L 2+ Patellae (L3-4): R 2+ L 2+ Achilles (S1-2):R 2+ L 2+ Results Labs 09/16/24 05:10 09/16/24 05:10 Labs: Short CBC 09/15/24 Range/Units 12:28 WBC 7.0 (3.6-11.0) Thou/mm3 Hgb 13.5 (12.0-16.0) g/dL Hct 39.5 (36.0-46.0) % Plt Count 302 (140-440) Thou/mm3 BMP 09/15/24 12:28 Sodium 142 Potassium 4.0 Chloride 102 Carbon Dioxide 23.9 BUN 26 H Creatinine 1.0 Glucose 133 H Calcium 10.0 Cardiac Enzymes 09/15/24 Range/Units 12:28 Troponin I < 0.002 (0.0-0.045) ng/mL Liver Function 09/15/24 Range/Units 12:28 Total Bilirubin 0.6 (0.3-1.2) mg/dL AST 19 (0-34) U/L ALT 12 (10-49) U/L Alkaline Phosphatase 71 (46-116) U/L Albumin 4.3 (3.4-4.8) gm/dL Urine 09/15/24 Range/Units 16:01 Urine Color Colorless A (Lt Yel-Yel) Urine Clarity Clear (Clear/Hazy) Urine pH 8.0 H (5.0-7.0) Ur Specific Mcintosh 1.036 H (1.001-1.035) Urine Protein Negative (Neg - Trace) Urine Glucose (UA) 4+ A (Negative) Quality Measures Quality Measures none Advance care planning discussed with:: patient and child Medications Home Medications and Allergies Home Medications ?Medication ?Instructions ?Recorded ?Confirmed ?Type bumetanide 1 mg tablet 1 mg PO BID 09/16/24 09/16/24 History empagliflozin 25 mg tablet 25 mg PO QAM 09/16/24 09/16/24 History (Jardiance) finerenone 10 mg tablet (Kerendia) 10 mg PO QDAY 09/16/24 09/16/24 History losartan 100 mg tablet 100 mg PO HS 09/16/24 09/16/24 History metformin 1,000 mg tablet 1,000 mg PO BID 09/16/24 09/16/24 History semaglutide 0.25 mg or 0.5 mg (2 0.25 mg subcut QWEEK 09/16/24 09/16/24 History mg/3 mL) subcutaneous pen injector (Ozempic) simvastatin 20 mg tablet 20 mg PO QDAY 09/16/24 09/16/24 History Allergies Allergy/AdvReac Type Severity Reaction Status Date / Time No Known Drug Allergies Allergy Verified 09/15/24 11:47 Visit Medications Acetaminophen (Acetaminophen 325 Mg Tablet) 650 mg PO Q6H PRN PRN Reason: Fever >100.4 Stop: 10/15/24 15:31 Acetaminophen (Acetaminophen 325 Mg Tablet) 650 mg PO Q6H PRN PRN Reason: PAIN SCALE 1-3 (mild Stop: 10/15/24 15:31 Hydrocodone Bitart/Acetaminophen (Hydrocodone/Apap 5/325 Tablet) 1 tab PO Q4HR PRN PRN Reason: PAIN SCALE 4-6 (Moderate Stop: 09/20/24 15:31 Aspirin (Aspirin Ec 81 Mg Tabec) 81 mg PO QDAY [facility] Stop: 10/16/24 08:59 Atorvastatin Calcium (Atorvastatin Calcium 20 Mg Tablet) 40 mg PO HS [facility]DRA Stop: 10/15/24 20:59 Dextrose (Dextrose 50%-Water Inj 50 Ml Syringe) 25 ml IV Q15MIN PRN PRN Reason: BG 50-70 responsive npo pt Stop: 10/15/24 16:13 Dextrose (Dextrose 50%-Water Inj 50 Ml Syringe) 50 ml IV Q15MIN PRN PRN Reason: BG <50 OR BG <70 & pt unresponsive Stop: 10/15/24 16:13 Diphenhydramine HCl (Diphenhydramine Inj 50 Mg/Ml Vial) 12.5 mg IVP X1 PRN PRN Reason: Prior to MR brain Stop: 09/16/24 16:16 Glucagon (Glucagon Inj 1 Mg Vial) 1 mg IM Q15MIN PRN PRN Reason: BG <70, and no IV access Heparin Sodium (Porcine) (Heparin Sod Inj 5000 Unit/Ml Vial) 5,000 unit SC Q8HR [facility] Stop: 09/29/24 21:59 Sodium Chloride (Ns) 1,000 mls @ 75 mls/hr IV .[id number] [facility] Stop: 10/15/24 15:44 Last Admin: 09/15/24 16:19 Dose: 75 mls/hr Magnesium Sulfate (Magnesium Sulfate Ivpb) 4 gm in 50 mls @ 12.5 mls/hr IV X1 ONE Stop: 09/15/24 20:19 Insulin Human Lispro (Insulin Lispro (Admelog) 1 Unit/0.01 Ml Unit) 0 unit SC AC [facility]; Protocol Stop: 10/15/24 16:59 Labetalol HCl (Labetalol Inj 5 Mg/Ml Vial 20 Ml) 10 mg IVP Q15M PRN PRN Reason: HYPER Ondansetron HCl (Ondansetron Inj 2 Mg/Ml Inj 2 Ml) 4 mg IVP Q4HR PRN PRN Reason: NAUSEA OR VOMITING Stop: 10/15/24 12:09 Sennosides (Senna Tablet) 1 tab PO QDAY PRN; Protocol PRN Reason: constipation Stop: 10/15/24 15:31 Discontinued Medications Acetaminophen (Acetaminophen 500 Mg Tablet) 1,000 mg PO X1 ONE Stop: 09/15/24 14:04 Last Admin: 09/15/24 14:10 Dose: 1,000 mg Aspirin (Aspirin Ec 81 Mg Tabec) 81 mg PO X1 ONE Stop: 09/15/24 14:01 Last Admin: 09/15/24 14:10 Dose: 81 mg Assessment & Plan Plan # Expressive aphasia # Confusion # Hx CVA w/ residual right lower facial droop Hx stroke/TIA: yes Hx afib: possibly (unconfirmed), NOT on anticoagulation Smoking hx: none Initial symptoms: Aphasia, headache LKAW: 08:30 on 09/15 Initial NIHSS: 1 Inital BP: 150/79 EKG: NSR, HR 79, QTc 421 Initial glucose: 133 UDS: negative A1C: 8.1 (04/25/24) Lipids: Triglycerides 141 WNL, cholesterol 180 WNL, LDL 90 WNL. HDL 62 high (04/25/24) TSH: Pending Troponin: negative x1 CT head w/o: negative for acute hemorrhage, mass effect, midline shift CTA head/neck w/: negative for arterial stenosis, LVO MRI/MRA w/ and w/o: pending TTE: pending Meds given: Tylenol ABCD2 score (risk of stroke after suspected TIA): 6 (high risk) ASCVD: unable to calculate as patient age >75 y/o. 48.3% (when max age of 75 y/o entered, sBP 154, lipids from April 2024) risk of CV event in next 10 years. Given patient hx of previous CVA, and T2DM patient would benefit from high-intensity statin. DDX: TIA, complex migraine, seizure Plan: - ASA 81 mg daily - ASCVD: unable to calculate as patient age >75 y/o. 48.3% (when max age of 77 y/o entered, sBP 154, lipids from April 2024) risk of CV event in next 10 years. Given patient hx of previous CVA, and T2DM patient would benefit from high-intensity statin. - Pending TTE, MRI/MRA w/ and w/o, TSH, lipid panel, A1C #Hypertension Home med: losartan 100 mg Plan: - Management per primary #Diabetes Mellitus Type 2 Home med: metformin, Jardiance, Ozempic Plan: - Management per primary - Pending A1C Plan discussed with Dr. Luis Hansen, PGY1 Attending Provider Attestation/Addendum I personally have seen and examined the patient at the bedside and I agree with the resident's findings assessment and plan of care. Patient most likely has had a TIA, follow-up with MRI brain. Continue with aspirin and statin
[2024-09-15] MEDS: Magnesium Sulfate 4 GM Ivpb 4 GM/50 ML BAG IV (17:55)
[2024-09-15 17:59] VITALS: BP 173/102; PULSE 81; RESP 18; TEMP 36.7; O2SAT 96
[2024-09-15 19:41] VITALS: BP 154/79; PULSE 74; RESP 14; TEMP 37; O2SAT 94
[2024-09-15] MEDS: HEPARIN SOD INJ 5000 UNIT/ML VIAL SC (22:42)
[2024-09-15] MEDS: ATORVASTATIN CALCIUM 20 MG TABLET 40 MG PO (22:45)
[2024-09-16] VITALS (9 sets, daily range): BP systolic 101–137; BP diastolic 55–74; PULSE 65–75; RESP 11–20; TEMP 36.1–36.8; O2SAT 93–97
--- NOTE | 2024-09-16 | XR_ITS ---
Examinations: MRI Brain without intravenous contrast. MRI brain with intravenous contrast MRA brain with intravenous contrast. MRA brain without intravenous contrast MRA neck with intravenous contrast Date and time of exam: September 16, 2024, 1107 hrs. Indications: Stroke alert yesterday, onset focal neurologic deficit Technique: Multiple axial and sagittal images of the brain have been obtained Siemens high-resolution 1.5 Joann short bore scanner is utilized. Sagittal sections, T1-weighted, TR 500, TE 14 Axial sections proton density and T2-weighted, TR 3,000, TE 34, TR 3,000, TE 91 Inversion recovery axial images, TR 9,260, TE 111, TI 2,500 Diffusion weighted images, axial sections, TR 4,800, TE 128, B value 1,000 Axial sections, ADC map, TR 4,800, TE 128. Contrast images have been obtained post intravenous 19 cc Gadolinium. T1-weighted axial and coronal images post contrast have been obtained. Angiographic images of neck and brain are obtained pre and post contrast. 3-D post processing performed, including brain, extracranial neck arterial maximum intensity projections Findings: Sellaturcica is not enlarged. The optic chiasm and infundibular stalk are not remarkable. Prepontine and interpeduncular cisterns are not enlarged. No localized enlargement of the medulla or akilah. Fourth ventricle and cerebellar tonsils normal in position. Subacute hemorrhage is not seen. Fourth ventricle is midline. Mass in the cerebellopontine angle region is not evident. 7th and 8th nerve complexes exhibits symmetry. Globes are symmetrical with no retro-orbital mass. Increased white matter signal moderate Diffusion-weighted images demonstrateno focus of restricted diffusion. Mass-effect upon the ventricular system is not identified. Abnormal contrast enhancement is not seen. MRA brain carotid images no carotid stenoses, no cerebral large vessel occlusions Impression: Negative for acute hemorrhage mass effect or midline shift No acute infarct Moderate chronic microvascular white matter change No significant carotid stenoses No cerebral large vessel arterial occlusions
--- NOTE | 2024-09-16 01:02 | PC.NURSE ---
unable to do med rec due to pt not able to remember medications. asked family to bring list of current medications in the morning
[2024-09-16] MEDS: HEPARIN SOD INJ 5000 UNIT/ML VIAL SC ×3 (05:24→21:44)
[2024-09-16 06:09] LABS: Basophils # (Auto) 0.0 Thou/mm3 (0.0-0.2); Basophils % (Auto) 0 % (0-2.5); Eosinophils # (Auto) 0.1 Thou/mm3 (0.0-0.5); Eosinophils % (Auto) 2 % (0-10); Hematocrit 39.0 % (36.0-46.0); Hemoglobin 13.1 g/dL (12.0-16.0); Immature Granulocytes Auto 0.02 Thou/mm3 (0.00-0.00); Lymphocytes # (Auto) 2.0 Thou/mm3 (1.0-4.8); Lymphocytes % (Auto) 32 % (10-50); Mean Corpuscular HGB Conc 33.6 g/dl (31.0-37.0); Mean Corpuscular Hemoglobin 27.2 pg (25.0-35.0); Mean Corpuscular Volume 81 fL (80-100); Monocytes # (Auto) 0.7 Thou/mm3 (0.0-0.8); Monocytes % (Auto) 10 % (0-12); Neutrophils # (Auto) 3.6 Thou/mm3 (1.8-7.7); Neutrophils % (Auto) 56 % (37-80); Nucleated Red Blood Cell # 0.00 Thou/mm3 (0.00-0.00); Nucleated Red Blood Cell % 0 /100 WBC (0); Platelet Count 291 Thou/mm3 (140-440); RDW Standard Deviation 43.9 fL (36.4-46.3); Red Blood Count 4.82 Miln/mm3 (4.00-5.20); White Blood Count 6.5 Thou/mm3 (3.6-11.0)
[2024-09-16 06:26] LABS: INR 1.0 (0.9-1.3); Prothrombin Time 10.7 Seconds (9.0-12.2)
[2024-09-16 07:03] LABS: Alanine Aminotransferase 8 U/L (10-49); Albumin, Serum 3.9 gm/dL (3.4-4.8); Albumin/Globulin Ratio 1.7 (1.2-2.2); Alkaline Phosphatase 64 U/L (46-116); Anion Gap 12 (7-16); Aspartate Amino Transferase 16 U/L (0-34); BUN/Creatinine Ratio 21 Ratio (12-20); Bilirubin,Total 0.6 mg/dL (0.3-1.2); Blood Urea Nitrogen 15 mg/dL (9-23); Calcium 9.0 mg/dL (8.3-10.6); Calcium (Corrected) 9.1 mg/dL (8.5-10.1); Carbon Dioxide 24.1 mMol/L (20.0-31.0); Cardiac Risk Estimate 3.7 RATIO (3.7-5.6); Chloride 107 mMol/L (98-107); Cholesterol 155 mg/dL (132-200); Creatinine (Component) 0.7 mg/dL (0.6-1.3); Estimated Creatinine Clearance 52.7 mL/min (>60); Globulin 2.3 gm/dL (2.3-3.5); Glucose 96 mg/dL (74-106); HDL Cholesterol 42 mg/dL (40-60); LDL Cholesterol,Calculated 71 mg/dL (0-130); Magnesium 2.3 mg/dL (1.6-2.6); Osmolality,Calculated 285 (275-295); Phosphorous 3.5 mg/dL (2.4-5.1); Potassium 3.7 mMol/L (3.4-5.1); Sodium 143 mMol/L (136-145); Thyroid Stimulating Hormone 1.34 uIU/mL (0.55-4.78); Total Protein 6.2 gm/dL (5.7-8.2); Triglycerides 209 mg/dL (30-150); eGFR > 60 See Note
[2024-09-16 07:11] LABS: Glucose Estimated Average 151 mg/dL (80-131); Hemoglobin A1C 6.9 % Hgb (4.8-6.0)
[2024-09-16] MEDS: ASPIRIN EC 81 MG TABEC PO (08:30)
[2024-09-16] MEDS: SODIUM CHLORIDE 0.9% 1000 ML 1,000 ML 75 ML IV (08:30)
--- NOTE | 2024-09-16 10:41 | ESPR_ITS ---
Documentation for date of: 09/16/24 Subjective Subjective Interval history: Patient states she is feeling better today. Reports her speech has improved and she is now able to get words out more easily compared to yesterday. Denies any ongoing confusion or mental fogginess. No new headache, numbness, tingling, weakness, dizziness, or visual disturbances. She is able to name objects, follow simple commands, and answer questions clearly and appropriately without delay. She denies chest pain, palpitations, shortness of breath, nausea, or vomiting. She reports she has been eating and tolerating food well, with a good appetite. No fever, chills, or urinary symptoms. Did not yet assess ambulation status ? to follow up with PT and functional evaluation tomorrow. Exam Vital Signs Temp Pulse Resp BP Pulse Ox O2 Del Method 98.3 F 67 15 114/60 93 L Room Air 09/16/24 08:00 09/16/24 08:00 09/16/24 08:00 09/16/24 08:00 09/16/24 08:00 09/16/24 08:00 Narrative Exam General: Elderly female, alert, mildly confused, cooperative Neuro: Alert, mild expressive aphasia, chronic right nasolabial flattening, CN II?XII grossly intact, no focal motor/sensory deficits, no ataxia CV: RRR, no murmurs Resp: Clear to auscultation GI: Soft, non-tender, non-distended Skin: Warm, dry, intact Extremities: Full ROM, no edema Psych: Delayed responses but appropriate affect Objective Labs 09/17/24 04:33 09/17/24 04:33 Labs: Laboratory Results - last 24 hr 09/15/24 09/15/24 09/15/24 12:28 15:55 16:01 WBC 7.0 RBC 5.00 Hgb 13.5 Hct 39.5 MCV 79 L MCH 27.0 MCHC 34.2 RDW Std Deviation 43.0 Plt Count 302 Neut % (Auto) 56 Lymph % (Auto) 34 [place] % (Auto) 8 Eos % (Auto) 2 Baso % (Auto) 0 Neut # (Auto) 3.9 Lymph # (Auto) 2.4 [place] # (Auto) 0.5 Eos # (Auto) 0.1 Baso # (Auto) 0.0 Immature Gran # (Auto) 0.03 H Absolute Nucleated RBC 0.00 Immature Gran % 0 Nucleated RBC % 0 PT 10.7 INR 1.0 APTT 27.2 Sodium 142 Potassium 4.0 Chloride 102 Carbon Dioxide 23.9 Anion Gap 16 BUN 26 H Creatinine 1.0 Estim Creat Clear Calc 36.9 L eGFR 57 L BUN/Creatinine Ratio 26 H Glucose [address] Glu mg/dL Hemoglobin A1c Calculated Osmolality 289 Calcium 10.0 Corrected Calcium 10.0 Phosphorus Magnesium 1.6 Total Bilirubin 0.6 AST 19 ALT 12 Alkaline Phosphatase 71 Troponin I < 0.002 Total Protein 6.5 Albumin 4.3 Globulin 2.2 L Albumin/Globulin Ratio 2.0 Triglycerides Cholesterol LDL Cholesterol, Calc HDL Cholesterol Cholesterol/HDL Ratio TSH Ur Collection Type Clean Catch Urine Color Colorless A Urine Clarity Clear Urine pH 8.0 H Ur Specific [place] 1.036 H Urine Protein Negative Urine Glucose (UA) 4+ A Urine Ketones 1+ A Urine Blood Negative Urine Nitrite Negative Urine Bilirubin Negative Urine Urobilinogen (Auto) Negative Ur Leukocyte Esterase Negative Urine RBC 9 H Urine WBC 2 Ur Squamous Epith Cells 0 Urine Bacteria None Urine Opiates Screen Negative Urine Fentanyl Screen Negative Ur Barbiturates Screen Negative U Amphetamin/Meth Scrn Negative U Benzodiazepines Scrn Negative U Cocaine Metab Screen Negative U Marijuana (THC) Screen Negative HCG (Qual) Negative 09/16/24 05:10 WBC 6.5 RBC 4.82 Hgb 13.1 Hct 39.0 MCV 81 MCH 27.2 MCHC 33.6 RDW Std Deviation 43.9 Plt Count 291 Neut % (Auto) 56 Lymph % (Auto) 32 [place] % (Auto) 10 Eos % (Auto) 2 Baso % (Auto) 0 Neut # (Auto) 3.6 Lymph # (Auto) 2.0 [place] # (Auto) 0.7 Eos # (Auto) 0.1 Baso # (Auto) 0.0 Immature Gran # (Auto) 0.02 H Absolute Nucleated RBC 0.00 Immature Gran % 0 Nucleated RBC % 0 PT 10.7 INR 1.0 APTT Sodium 143 Potassium 3.7 Chloride 107 Carbon Dioxide 24.1 Anion Gap 12 BUN 15 Creatinine 0.7 Estim Creat Clear Calc 52.7 L eGFR > 60 BUN/Creatinine Ratio [address] H Glucose [address] Glu mg/dL 151 H Hemoglobin A1c 6.9 H Calculated Osmolality 285 Calcium 9.0 Corrected Calcium 9.1 Phosphorus 3.5 Magnesium 2.3 Total Bilirubin 0.6 AST 16 ALT 8 L Alkaline Phosphatase 64 Troponin I Total Protein 6.2 Albumin 3.9 Globulin 2.3 Albumin/Globulin Ratio 1.7 Triglycerides 209 H Cholesterol 155 LDL Cholesterol, Calc 71 HDL Cholesterol 42 Cholesterol/HDL Ratio 3.7 TSH 1.34 Ur Collection Type Urine Color Urine Clarity Urine pH Ur Specific [place] Urine Protein Urine Glucose (UA) Urine Ketones Urine Blood Urine Nitrite Urine Bilirubin Urine Urobilinogen (Auto) Ur Leukocyte Esterase Urine RBC Urine WBC Ur Squamous Epith Cells Urine Bacteria Urine Opiates Screen Urine Fentanyl Screen Ur Barbiturates Screen U Amphetamin/Meth Scrn U Benzodiazepines Scrn U Cocaine Metab Screen U Marijuana (THC) Screen HCG (Qual) Quality Measures Quality Measures VTE prophylaxis Advance care planning discussed with:: patient and child Assessment & Plan Assessment Current Active Medications: Generic Name Dose Route Start Last Admin Trade Name Freq PRN Reason Stop Dose Admin Acetaminophen 650 mg 09/15/24 15:32 Acetaminophen 325 Mg Tablet PO 10/15/24 15:31 Q6H PRN Fever >100.4 Acetaminophen 650 mg 09/15/24 15:32 Acetaminophen 325 Mg Tablet PO 10/15/24 15:31 Q6H PRN PAIN SCALE 1-3 (mild Hydrocodone Bitart/Acetaminophen 1 tab 09/15/24 15:32 Hydrocodone/Apap 5/325 Tablet PO 09/20/24 15:31 Q4HR PRN PAIN SCALE 4-6 (Moderate Aspirin 81 mg 09/16/24 09:00 09/16/24 08:30 Aspirin Ec 81 Mg Tabec PO 10/16/24 08:59 81 mg QDAY SANDRA Administration Atorvastatin Calcium 40 mg 09/15/24 21:00 09/15/24 22:45 Atorvastatin Calcium 20 Mg Tablet PO 10/15/24 20:59 40 mg HS SANDRA Administration Dextrose 25 ml 09/15/24 16:14 Dextrose 50%-Water Inj 50 Ml Syringe IV 10/15/24 16:13 Q15MIN PRN BG 50-70 responsive npo pt Dextrose 50 ml 09/15/24 16:14 Dextrose 50%-Water Inj 50 Ml Syringe IV 10/15/24 16:13 Q15MIN PRN BG <50 OR BG <70 & pt unresponsive Diphenhydramine HCl 12.5 mg 09/15/24 16:17 Diphenhydramine Inj 50 Mg/Ml Vial IVP 09/16/24 16:16 X1 PRN Prior to MR brain Glucagon 1 mg 09/15/24 16:14 Glucagon Inj 1 Mg Vial IM Q15MIN PRN BG <70, and no IV access Heparin Sodium (Porcine) 5,000 unit 09/15/24 22:00 09/16/24 05:24 Heparin Sod Inj 5000 Unit/Ml Vial SC 09/29/24 21:59 5,000 unit Q8HR SANDRA Administration Sodium Chloride 1,000 mls @ 75 mls/hr 09/15/24 15:45 09/16/24 08:30 Ns IV 10/15/24 15:44 75 mls/hr .[id number] SANDRA Administration Insulin Human Lispro 0 unit 09/15/24 17:00 09/16/24 07:53 Insulin Lispro (Admelog) 1 Unit/0.01 Ml Unit SC 10/15/24 16:59 Not Given AC SANDRA Protocol Ondansetron HCl 4 mg 09/15/24 12:10 Ondansetron Inj 2 Mg/Ml Inj 2 Ml IVP 10/15/24 12:09 Q4HR PRN NAUSEA OR VOMITING Sennosides 1 tab 09/15/24 15:32 Senna Tablet PO 10/15/24 15:31 QDAY PRN constipation Protocol Plan 83F with history of remote CVA, HTN, and DM2 presenting with acute transient expressive aphasia, now clinically improved with negative MRI and CTA; concern for TIA vs stroke mimic. #Transient Ischemic Attack (TIA) vs Stroke Mimic 83-year-old female with history of HTN, DM2, and prior remote CVA presenting with acute confusion, expressive aphasia, and new right facial droop. CT head and CTA head/neck showed no acute hemorrhage or large vessel occlusion. NIHSS score: 1. She was not a candidate for thrombolytics due to last known well >4.5 hours prior to evaluation and non-disabling symptoms. Teleneurology and in-house neurology (Dr. Smith) were consulted. She was started on aspirin 81 mg daily and admitted to telemetry for monitoring. Her CHADS2-VASc score is 5 (age >75 = 2, female = 1, HTN = 1, DM2 = 1), indicating high risk for cardioembolic stroke. No home anticoagulation or antiplatelet prior to admission. -Patient is clinically improving with resolution of confusion and improved expressive aphasia. No new deficits noted today. Facial droop remains chronic and unchanged. MRI brain completed, which showed no acute infarct, hemorrhage, or large vessel occlusion, and only moderate chronic microvascular white matter changes consistent with age and vascular disease. TSH, A1c, and lipid panel within goal. TTE still pending. Plan: * Admit to telemetry for stroke monitoring * Neuro checks Q4H * DVT prophylaxis with Lovenox 40 mg SC daily * Head of bed 30? * Maintain permissive hypertension x24 hrs ? hold home antihypertensives unless BP >220/120 * Tylenol PRN for headache and fever prevention * Maintain euglycemia ? hold metformin and Ozempic if needed * Start aspirin 81 mg daily * Start atorvastatin (Lipitor) 40 mg nightly * A1c 6.9; lipid panel: triglycerides 126, LDL pending; LDL goal <70 * TSH normal * MRI brain no acute infarct * Echocardiogram pending * PT/OT evaluations * Speech therapy for aphasia and bedside swallow screen * Continue to follow neurology recommendations #CVA, history per patient 22-year-old stroke with full functional recovery Plan: * Secondary prevention: lipid panel, A1c, lifestyle counseling * Echo + telemetry to assess for embolic source #Hypertension On losartan 100 mg BP this morning is 114/60; on admission 166/85 Plan: * Continue losartan 100 * Monitor BP #Diabetes Mellitus Type 2 On metformin, Jardiance, Ozempic A1c 6.9% Plan: * Start inulin sliding scales * Monitor glucose * Hold metformin if contrast repeated or KIP develops #Hyperlipidemia * Start lipitor 40 mg hs * Recheck lipid panel #Complex Migraine (resolved) Moderate intensity, started with neurologic symptoms No longer a complaint Plan: * Continue Tylenol PRN * Monitor for worsening Health Maintenance * Disposition: Stroke unit admission * Diet: Cardiac * DVT prophylaxis: Heparin SC * Code status: Full ----- Plan discussed with attending physician Dr. Shereen Spivey MD PGY-1 Internal Medicine Attending Provider Attestation/Addendum I, Danna Regan DO, attest that I was physically present for the pollack portions of the service and evaluated the patient with the resident and I reviewed and discussed the case with the resident and agree with the resident's findings and plans of care as documented above Patient seen and eval this a.m. No acute events overnight. Family at bedside states that patient is no longer confused and able to speak fluently. Symptoms from initial presentation have since resolved. MRI is pending. Will follow-up with neurology recommendations and echocardiogram.
[2024-09-16] MEDS: BUMETANIDE 0.5 MG TABLET 1 MG PO (17:27)
[2024-09-16] MEDS: ATORVASTATIN CALCIUM 20 MG TABLET 40 MG PO (21:35)
[2024-09-16] MEDS: LOSARTAN POTASSIUM 25 MG TABLET 100 MG PO (21:36)
--- NOTE | 2024-09-16 23:53 | PD.VPROG1 ---
Telemedicine visit statement This visit was conducted with the use of phone was obtained on 09/16/24 at 2353. Documentation for date of: 09/16/24 Subjective Subjective Interval history: Patient is in MedSurg. No new symptoms or recurrence of similar symptoms after admission. She is resting comfortably Virtual exam Vital Signs Temp Pulse Resp BP Pulse Ox O2 Del Method 97.6 F 65 17 110/65 94 L Room Air 09/16/24 20:00 09/16/24 21:36 09/16/24 20:00 09/16/24 21:36 09/16/24 20:00 09/16/24 20:00 Objective Labs 09/16/24 05:10 09/16/24 05:10 Labs: Laboratory Results - last 24 hr 09/16/24 05:10 WBC 6.5 RBC 4.82 Hgb 13.1 Hct 39.0 MCV 81 MCH 27.2 MCHC 33.6 RDW Std Deviation 43.9 Plt Count 291 Neut % (Auto) 56 Lymph % (Auto) 32 [place] % (Auto) 10 Eos % (Auto) 2 Baso % (Auto) 0 Neut # (Auto) 3.6 Lymph # (Auto) 2.0 [place] # (Auto) 0.7 Eos # (Auto) 0.1 Baso # (Auto) 0.0 Immature Gran # (Auto) 0.02 H Absolute Nucleated RBC 0.00 Immature Gran % 0 Nucleated RBC % 0 PT 10.7 INR 1.0 Sodium 143 Potassium 3.7 Chloride 107 Carbon Dioxide 24.1 Anion Gap 12 BUN 15 Creatinine 0.7 Estim Creat Clear Calc 52.7 L eGFR > 60 BUN/Creatinine Ratio 21 H Glucose [address] Glu mg/dL 151 H Hemoglobin A1c 6.9 H Calculated Osmolality 285 Calcium 9.0 Corrected Calcium 9.1 Phosphorus 3.5 Magnesium 2.3 Total Bilirubin 0.6 AST 16 ALT 8 L Alkaline Phosphatase 64 Total Protein 6.2 Albumin 3.9 Globulin 2.3 Albumin/Globulin Ratio 1.7 Triglycerides 209 H Cholesterol 155 LDL Cholesterol, Calc 71 HDL Cholesterol 42 Cholesterol/HDL Ratio 3.7 TSH 1.34 Assessment & Plan Problem List (1) TIA (transient ischemic attack): Status: Acute Assessment and plan: MRI brain: Negative for acute infarction. Continue with aspirin and apixaban and statin Keep the vascular risk factors controlled
[2024-09-17] VITALS (7 sets, daily range): BP systolic 104–130; BP diastolic 56–70; PULSE 61–72; RESP 10–97; TEMP 36–36.2; O2SAT 94–97; BMI 27.6
[2024-09-17 05:19] LABS: Basophils # (Auto) 0.0 Thou/mm3 (0.0-0.2); Basophils % (Auto) 0 % (0-2.5); Eosinophils # (Auto) 0.2 Thou/mm3 (0.0-0.5); Eosinophils % (Auto) 3 % (0-10); Hematocrit 39.3 % (36.0-46.0); Hemoglobin 12.4 g/dL (12.0-16.0); Immature Granulocytes Auto 0.02 Thou/mm3 (0.00-0.00); Lymphocytes # (Auto) 2.3 Thou/mm3 (1.0-4.8); Lymphocytes % (Auto) 38 % (10-50); Mean Corpuscular HGB Conc 31.6 g/dl (31.0-37.0); Mean Corpuscular Hemoglobin 26.9 pg (25.0-35.0); Mean Corpuscular Volume 85 fL (80-100); Monocytes # (Auto) 0.5 Thou/mm3 (0.0-0.8); Monocytes % (Auto) 9 % (0-12); Neutrophils # (Auto) 2.9 Thou/mm3 (1.8-7.7); Neutrophils % (Auto) 49 % (37-80); Nucleated Red Blood Cell # 0.00 Thou/mm3 (0.00-0.00); Nucleated Red Blood Cell % 0 /100 WBC (0); Platelet Count 296 Thou/mm3 (140-440); RDW Standard Deviation 47.2 fL (36.4-46.3); Red Blood Count 4.61 Miln/mm3 (4.00-5.20); White Blood Count 6.0 Thou/mm3 (3.6-11.0)
[2024-09-17] MEDS: BUMETANIDE 0.5 MG TABLET 1 MG PO (05:43)
[2024-09-17] MEDS: HEPARIN SOD INJ 5000 UNIT/ML VIAL SC (05:45)
[2024-09-17 06:22] LABS: Alanine Aminotransferase 8 U/L (10-49); Albumin, Serum 3.9 gm/dL (3.4-4.8); Albumin/Globulin Ratio 1.7 (1.2-2.2); Alkaline Phosphatase 67 U/L (46-116); Anion Gap 12 (7-16); Aspartate Amino Transferase 16 U/L (0-34); BUN/Creatinine Ratio 23 Ratio (12-20); Bilirubin,Total 0.5 mg/dL (0.3-1.2); Blood Urea Nitrogen 18 mg/dL (9-23); Calcium 8.9 mg/dL (8.3-10.6); Calcium (Corrected) 9.0 mg/dL (8.5-10.1); Carbon Dioxide 23.6 mMol/L (20.0-31.0); Chloride 108 mMol/L (98-107); Creatinine (Component) 0.8 mg/dL (0.6-1.3); Estimated Creatinine Clearance 46.1 mL/min (>60); Globulin 2.3 gm/dL (2.3-3.5); Glucose 113 mg/dL (74-106); Magnesium 1.9 mg/dL (1.6-2.6); Osmolality,Calculated 289 (275-295); Phosphorous 3.5 mg/dL (2.4-5.1); Potassium 3.8 mMol/L (3.4-5.1); Sodium 144 mMol/L (136-145); Total Protein 6.2 gm/dL (5.7-8.2); eGFR > 60 See Note
--- NOTE | 2024-09-17 07:10 | PD.RESPRO ---
Documentation for date of: 09/17/24 Exam Vital Signs Temp Pulse Resp BP Pulse Ox O2 Del Method 96.8 F 61 24 H 120/67 97 Room Air 09/17/24 04:00 09/17/24 05:43 09/17/24 04:00 09/17/24 05:43 09/17/24 04:00 09/17/24 04:00 Objective Labs 09/17/24 04:33 09/17/24 04:33 Labs: Laboratory Results - last 24 hr 09/16/24 09/17/24 05:10 04:33 WBC 6.0 RBC 4.61 Hgb 12.4 Hct 39.3 MCV 85 MCH 26.9 MCHC 31.6 RDW Std Deviation 47.2 H Plt Count 296 Neut % (Auto) 49 Lymph % (Auto) 38 [place] % (Auto) 9 Eos % (Auto) 3 Baso % (Auto) 0 Neut # (Auto) 2.9 Lymph # (Auto) 2.3 [place] # (Auto) 0.5 Eos # (Auto) 0.2 Baso # (Auto) 0.0 Immature Gran # (Auto) 0.02 H Absolute Nucleated RBC 0.00 Immature Gran % 0 Nucleated RBC % 0 Sodium 144 Potassium 3.8 Chloride 108 H Carbon Dioxide 23.6 Anion Gap 12 BUN 18 Creatinine 0.8 Estim Creat Clear Calc 46.1 L eGFR > 60 BUN/Creatinine Ratio 23 H Glucose [address] Glu mg/dL 151 H Hemoglobin A1c 6.9 H Calculated Osmolality 289 Calcium 8.9 Corrected Calcium 9.0 Phosphorus 3.5 Magnesium 1.9 Total Bilirubin 0.5 AST 16 ALT 8 L Alkaline Phosphatase 67 Total Protein 6.2 Albumin 3.9 Globulin 2.3 Albumin/Globulin Ratio 1.7 Quality Measures Quality Measures VTE prophylaxis Assessment & Plan Assessment Current Active Medications: Generic Name Dose Route Start Last Admin Trade Name Freq PRN Reason Stop Dose Admin Acetaminophen 650 mg 09/15/24 15:32 Acetaminophen 325 Mg Tablet PO 10/15/24 15:31 Q6H PRN Fever >100.4 Acetaminophen 650 mg 09/15/24 15:32 Acetaminophen 325 Mg Tablet PO 10/15/24 15:31 Q6H PRN PAIN SCALE 1-3 (mild Hydrocodone Bitart/Acetaminophen 1 tab 09/15/24 15:32 Hydrocodone/Apap 5/325 Tablet PO 09/20/24 15:31 Q4HR PRN PAIN SCALE 4-6 (Moderate Aspirin 81 mg 09/16/24 09:00 09/16/24 08:30 Aspirin Ec 81 Mg Tabec PO 10/16/24 08:59 81 mg QDAY SANDRA Administration Atorvastatin Calcium 40 mg 09/15/24 21:00 09/16/24 21:35 Atorvastatin Calcium 20 Mg Tablet PO 10/15/24 20:59 40 mg HS SANDRA Administration Bumetanide 1 mg 09/16/24 18:00 09/17/24 05:43 Bumetanide 0.5 Mg Tablet PO 10/16/24 17:59 1 mg BIDD SANDRA Administration Dextrose 25 ml 09/15/24 16:14 Dextrose 50%-Water Inj 50 Ml Syringe IV 10/15/24 16:13 Q15MIN PRN BG 50-70 responsive npo pt Dextrose 50 ml 09/15/24 16:14 Dextrose 50%-Water Inj 50 Ml Syringe IV 10/15/24 16:13 Q15MIN PRN BG <50 OR BG <70 & pt unresponsive Glucagon 1 mg 09/15/24 16:14 Glucagon Inj 1 Mg Vial IM Q15MIN PRN BG <70, and no IV access Heparin Sodium (Porcine) 5,000 unit 09/15/24 22:00 09/17/24 05:45 Heparin Sod Inj 5000 Unit/Ml Vial SC 09/29/24 21:59 5,000 unit Q8HR SANDRA Administration Insulin Human Lispro 0 unit 09/15/24 17:00 09/16/24 17:28 Insulin Lispro (Admelog) 1 Unit/0.01 Ml Unit SC 10/15/24 16:59 Not Given AC SANDRA Protocol Losartan Potassium 100 mg 09/16/24 21:00 09/16/24 21:36 Losartan Potassium 25 Mg Tablet PO 10/16/24 20:59 100 mg HS SANDRA Administration Ondansetron HCl 4 mg 09/15/24 12:10 Ondansetron Inj 2 Mg/Ml Inj 2 Ml IVP 10/15/24 12:09 Q4HR PRN NAUSEA OR VOMITING Sennosides 1 tab 09/15/24 15:32 Senna Tablet PO 10/15/24 15:31 QDAY PRN constipation Protocol
[2024-09-17] MEDS: POTASSIUM CHLORIDE 10% 20 MEQ/15 ML UDC PO (08:56)
[2024-09-17] MEDS: Magnesium Sulfate 4 GM Ivpb 4 GM/50 ML BAG IV (08:56)
[2024-09-17] MEDS: ASPIRIN EC 81 MG TABEC PO (08:56)
--- NOTE | 2024-09-17 10:17 | ESDS_ITS ---
<Statement entered by Danna Regan DO - 09/18/24 08:36> I, Danna Regan DO, attest that I was physically present for the pollack portions of the service and evaluated the patient with the resident and I reviewed and discussed the case with the resident and agree with the resident's findings and plans of care as documented above <Statement entered by James Oliva MD - 09/17/24 13:59> I discussed and supervised with the product managent intern physician who took care of this patient. I personally saw and examined the patient. I agree with most of the assessment and plan. Disclaimer: Despite multiple revisions, due to the dictation software being used, the document bellow may not be free of grammatical errors including phonetic/typographic errors. However, this does not deter from our commitment to providing health care in the patient's best interest in mind. Plan of care discussed with attending Physician Dr. Shereen Oliva MD PGY-3 Planned Discharge Date 09/17/24 DS: Providers Provider Date of admission: 09/15/24 15:32 Primary care physician: Physician No Primary/Family Admitting Provider: Danna Regan DO Attending Provider on Admission: Danna Regan DO Consults: 09/15/24 12:11 Consult to Neurology / Tele-Neurology Routine Comment: Consulting Provider: [facility] 09/15/24 15:51 Consult to Neurology / Tele-Neurology Stat Comment: Consulting Provider: Luis Smith 09/15/24 15:55 PT [Referral Physical Therapy] Routine Comment: Physician Instructions: 09/15/24 15:56 Referral Speech Therapy Stat Comment: Attending Provider on DC: Dr. Regan Discharging Provider: Alea Singer, DS: Diagnosis Problem List Completed Was Problem List Reviewed/Reconciled?: Yes Hospital Course Hospital Course Hospital course: Hospital Course Ms. Denis fleming is a 83yo woman with history of remote CVA, HTN, and DM2 who presented with c/f acute transient expressive aphasia, now clinically resolved with negative MRI and CTA. Stroke workup negative. Neurology consulted, apprcate recs, will d/c on asa and statin. ECHO, Approximate ejection fraction is 65%. pt able to ambulate per her baseline, Physical therapy offered FWW, pt declined. Patient stable and medically cleared for discharge Diagnoses #CVA, history per patient 22-year-old stroke with full functional recovery #Hypertension #Diabetes Mellitus Type 2 #Complex Migraine (resolved) #Hyperlipidemia Discharge instructions Continue taking aspirin and statin daily Take all home meds as prescribed Follow up with your PCP as outpatient within a week Follow up with your Neurology as outpatient within a week In case of emergency call 911 or come back to ED Case discussed with my senior resident Dr. Oliva Case discussed with my attending Dr. Shereen Singer MD PGY-1 Time Spent with Patient Time attestation: Total time spent providing and/or coordinating discharge services: Time spent: Greater than 30 minutes Exam Vital Signs Temp Pulse Resp BP Pulse Ox O2 Del Method 97.0 F 61 10 L 130/67 95 Room Air 09/17/24 08:00 09/17/24 08:00 09/17/24 08:00 09/17/24 08:00 09/17/24 08:00 09/17/24 08:00 Narrative Exam GENERAL: no acute distress, AAO x3, comfortably laying in bed, grand daughter laying next to her. HEENT: Head AT/ NC. Mucous membranes moist. PERRL. NECK: Supple, no lymphadenopathy, no carotid bruits. CARDIOVASCULAR: RRR. Normal S1/S2, No m/r/g. No pitting edema of bilateral LEs. RESPIRATORY: CTAB. No wheezing, rhonchi, crackles. GASTROINTESTINAL: Abdomen soft, non tender no palpable masses. Bowel sounds present MUSCULOSKELETAL:? No cyanosis or edema, no visible joint swelling. NEUROLOGICAL: CN II-XII grossly intact, possible mild flattening of L nasolabial fold (chronic). No focal deficits. Sensation intact, symmetric. PSYCHIATRIC: Awake and alert, not agitated, normal mood and affect. SKIN: No obvious rashes, no jaundice, normal turgor. Discharge Plan Plan Patient Disposition: HOME (Self Care) Care Plan Goals: Continue taking aspirin and statin daily Take all home meds as prescribed Follow up with your PCP as outpatient within a week Follow up with your Neurology as outpatient within a week In case of emergency call 911 or come back to ED Prescriptions/Referrals Prescriptions/Med Rec: New aspirin 81 mg Tablet,Delayed Release (Dr/Ec) 81 mg PO QDAY Qty: 60 0RF atorvastatin 40 mg tablet 40 mg PO HS Qty: 60 0RF (DME) blood pressure monitor [Blood Pressure Kit] Kit See Rx Instructions .Route Qty: 1 0RF Rx Instructions: As directed Continued Ozempic 0.25 mg or 0.5 mg (2 mg/3 mL) pen injector 0.25 mg SUBCUT QWEEK metformin 1,000 mg tablet 1,000 mg PO BID losartan 100 mg tablet 100 mg PO HS Jardiance 25 mg tablet 25 mg PO QAM bumetanide 1 mg tablet 1 mg PO BID Kerendia 10 mg tablet 10 mg PO QDAY Discontinued simvastatin 20 mg tablet 20 mg PO QDAY Referrals: No Primary/Family,Physician [Primary Care Provider] - Luis Smith MD [Physician] - Patient/Caregiver Discharge Instructions Education Materials: Hypertension Stroke Link, Stroke Prevention Activity Print Language: Bahamian Stand Alone Forms: Kristina Award Info., Patient Portal Info Letter Quality Discharge Quality Measures stroke Statin ordered >75 y/o:moderate or high intensity dose on DC: yes Statin ordered <75 y/o: high intensity dose on DC: n/a Statin not ordered due to:: not indicated (statin was ordered. ) Anticoagulation ordered for A-fib or flutter (current or hx): not indicated Antithrombotic ordered on DC: ordered
[2024-09-17] MEDS: INSULIN LISPRO (AdmeLOG) 1 UNIT/0.01 ML UNIT SC (12:06)
== END 2024-09-17 14:35 | disposition home or self-care (01) ==
LOC: SERX 14:34 → SERHOLD 16:13 → S3SX 09-17 09:46 → SERHOLD 09-18 07:15 → S2NX 09-18 07:15
PROVIDERS: Nurse Practitioner Family; Admitting Provider Internal Medicine; Emergency Provider Family Medicine; Visit Provider Internal Medicine
DX: R47.01 Aphasia (principal); R29.810 Facial weakness; R29.701 NIHSS score 1; I48.91 Unspecified atrial fibrillation; I25.10 Atherosclerotic heart disease of native coronary artery without angina pectoris; I10 Essential (primary) hypertension; G43.909 Migraine, unspecified, not intractable, without status migrainosus; E78.5 Hyperlipidemia, unspecified; E11.9 Type 2 diabetes mellitus without complications; Z86.73 Personal history of transient ischemic attack (TIA), and cerebral infarction without residual deficits; Z01.810 Encounter for preprocedural cardiovascular examination
CPT/HCPCS: 36415; 70450; 70496; 70498; 70553; 71045; 80053; 80061; 80307; 81001; 83036; 83735; 84100; 84443; 84484; 84703; 85025; 85610; 85730; 87086; 92610; 93005; 93225; 93306; 96360; 96361; 96372; 97162; A4649; G0378; J1644; J1815; J3475; J7030; Q9967; A9270

== ENCOUNTER → 2024-10-31 | Outpatient (CLI) | payer OTHER, MEDICAID, SELFPAY ==
[2024-10-31 11:07] LABS: Glucose,Fasting 107 mg/dL (74-106)
== END | disposition home or self-care (01) ==
LOC: COPL 09:49
PROVIDERS: PCP Family Medicine; Referring Provider Ophthalmology; Visit Provider Ophthalmology
DX: Z01.818 Encounter for other preprocedural examination (principal); H25.812 Combined forms of age-related cataract, left eye
CPT/HCPCS: 36415; 82947

== ENCOUNTER → 2024-11-03 | Outpatient (CLI) | payer OTHER, MEDICAID, SELFPAY ==
[2024-11-03 10:31] LABS: Basophils # (Auto) 0.0 Thou/mm3 (0.0-0.2); Basophils % (Auto) 1 % (0-2.5); Eosinophils # (Auto) 0.1 Thou/mm3 (0.0-0.5); Eosinophils % (Auto) 2 % (0-10); Hematocrit 39.5 % (36.0-46.0); Hemoglobin 13.0 g/dL (12.0-16.0); Immature Granulocytes Auto 0.02 Thou/mm3 (0.00-0.00); Lymphocytes # (Auto) 2.3 Thou/mm3 (1.0-4.8); Lymphocytes % (Auto) 37 % (10-50); Mean Corpuscular HGB Conc 32.9 g/dl (31.0-37.0); Mean Corpuscular Hemoglobin 27.3 pg (25.0-35.0); Mean Corpuscular Volume 83 fL (80-100); Monocytes # (Auto) 0.4 Thou/mm3 (0.0-0.8); Monocytes % (Auto) 6 % (0-12); Neutrophils # (Auto) 3.3 Thou/mm3 (1.8-7.7); Neutrophils % (Auto) 54 % (37-80); Nucleated Red Blood Cell # 0.00 Thou/mm3 (0.00-0.00); Nucleated Red Blood Cell % 0 /100 WBC (0); Platelet Count 322 Thou/mm3 (140-440); RDW Standard Deviation 43.4 fL (36.4-46.3); Red Blood Count 4.77 Miln/mm3 (4.00-5.20); White Blood Count 6.2 Thou/mm3 (3.6-11.0)
[2024-11-03 10:41] LABS: Glucose Estimated Average 143 mg/dL (80-131); Hemoglobin A1C 6.6 % Hgb (4.8-6.0)
[2024-11-03 10:49] LABS: Alanine Aminotransferase 10 U/L (10-49); Albumin, Serum 4.3 gm/dL (3.4-4.8); Albumin/Globulin Ratio 2.0 (1.2-2.2); Alkaline Phosphatase 73 U/L (46-116); Anion Gap 16 (7-16); Aspartate Amino Transferase 16 U/L (0-34); BUN/Creatinine Ratio 26 Ratio (12-20); Bilirubin,Total 0.6 mg/dL (0.3-1.2); Blood Urea Nitrogen 26 mg/dL (9-23); Calcium 10.8 mg/dL (8.3-10.6); Calcium (Corrected) 10.8 mg/dL (8.5-10.1); Carbon Dioxide 26.4 mMol/L (20.0-31.0); Cardiac Risk Estimate 3.9 RATIO (3.7-5.6); Chloride 101 mMol/L (98-107); Cholesterol 172 mg/dL (132-200); Creatinine (Component) 1.0 mg/dL (0.6-1.3); Globulin 2.1 gm/dL (2.3-3.5); Glucose 98 mg/dL (74-106); HDL Cholesterol 44 mg/dL (40-60); LDL Cholesterol,Calculated 87 mg/dL (0-130); Osmolality,Calculated 289 (275-295); Potassium 4.5 mMol/L (3.4-5.1); Sodium 143 mMol/L (136-145); Total Protein 6.4 gm/dL (5.7-8.2); Triglycerides 203 mg/dL (30-150); eGFR 57 See Note
[2024-11-03 10:59] LABS: Creatinine MALB Rnd Ur 73 mg/dL (30-125); Microalbumin Creat Ratio 85 mg/gCrea (<30); Microalbumin, Random Urine 62 mg/L (0-300)
== END | disposition home or self-care (01) ==
PROVIDERS: PCP Internal Medicine; Referring Provider Internal Medicine; Visit Provider Internal Medicine
DX: E11.22 Type 2 diabetes mellitus with diabetic chronic kidney disease (principal); I12.9 Hypertensive chronic kidney disease with stage 1 through stage 4 chronic kidney disease, or unspecified chronic kidney disease; N18.1 Chronic kidney disease, stage 1; E78.5 Hyperlipidemia, unspecified
CPT/HCPCS: 36415; 80053; 80061; 81001; 82043; 82570; 83036; 85025

== ENCOUNTER → 2024-12-06 | Outpatient (CLI) | payer OTHER, MEDICAID, SELFPAY ==
[2024-12-06 10:34] LABS: Basophils # (Auto) 0.0 Thou/mm3 (0.0-0.2); Basophils % (Auto) 0 % (0-2.5); Eosinophils # (Auto) 0.1 Thou/mm3 (0.0-0.5); Eosinophils % (Auto) 1 % (0-10); Hematocrit 40.4 % (36.0-46.0); Hemoglobin 14.5 g/dL (12.0-16.0); Immature Granulocytes Auto 0.03 Thou/mm3 (0.00-0.00); Lymphocytes # (Auto) 2.1 Thou/mm3 (1.0-4.8); Lymphocytes % (Auto) 31 % (10-50); Mean Corpuscular HGB Conc 35.9 g/dl (31.0-37.0); Mean Corpuscular Hemoglobin 29.7 pg (25.0-35.0); Mean Corpuscular Volume 83 fL (80-100); Monocytes # (Auto) 0.5 Thou/mm3 (0.0-0.8); Monocytes % (Auto) 7 % (0-12); Neutrophils # (Auto) 4.1 Thou/mm3 (1.8-7.7); Neutrophils % (Auto) 61 % (37-80); Nucleated Red Blood Cell # 0.00 Thou/mm3 (0.00-0.00); Nucleated Red Blood Cell % 0 /100 WBC (0); Platelet Count 369 Thou/mm3 (140-440); RDW Standard Deviation 43.8 fL (36.4-46.3); Red Blood Count 4.89 Miln/mm3 (4.00-5.20); White Blood Count 6.7 Thou/mm3 (3.6-11.0)
[2024-12-06 10:41] LABS: Glucose Estimated Average 134 mg/dL (80-131); Hemoglobin A1C 6.3 % Hgb (4.8-6.0)
[2024-12-06 10:48] LABS: Alanine Aminotransferase 11 U/L (10-49); Albumin, Serum 4.5 gm/dL (3.4-4.8); Alkaline Phosphatase 74 U/L (46-116); Anion Gap 8 (7-16); Aspartate Amino Transferase 18 U/L (0-34); BUN/Creatinine Ratio 23 Ratio (12-20); Bilirubin,Direct 0.2 mg/dL (0.0-0.3); Bilirubin,Total 0.5 mg/dL (0.3-1.2); Blood Urea Nitrogen 21 mg/dL (9-23); Calcium 10.3 mg/dL (8.3-10.6); Carbon Dioxide 28.5 mMol/L (20.0-31.0); Cardiac Risk Estimate 3.1 RATIO (3.7-5.6); Chloride 104 mMol/L (98-107); Cholesterol 144 mg/dL (132-200); Creatinine (Component) 0.9 mg/dL (0.6-1.3); Free T4 (Free Thyroxine) 1.61 ng/dL (0.89-1.76); Glucose 99 mg/dL (74-106); HDL Cholesterol 47 mg/dL (40-60); LDL Cholesterol,Calculated 68 mg/dL (0-130); Osmolality,Calculated 282 (275-295); Potassium 4.1 mMol/L (3.4-5.1); Sodium 140 mMol/L (136-145); Thyroid Stimulating Hormone 1.43 uIU/mL (0.55-4.78); Total Protein 6.8 gm/dL (5.7-8.2); Triglycerides 145 mg/dL (30-150); eGFR > 60 See Note
== END | disposition home or self-care (01) ==
LOC: COPL 09:11
PROVIDERS: PCP Family Medicine; Referring Provider Internal Medicine Cardiovascular Disease; Visit Provider Internal Medicine Cardiovascular Disease
DX: I10 Essential (primary) hypertension (principal); E78.5 Hyperlipidemia, unspecified; E11.65 Type 2 diabetes mellitus with hyperglycemia; E07.9 Disorder of thyroid, unspecified
CPT/HCPCS: 36415; 80048; 80061; 80076; 83036; 84439; 84443; 85025

== ENCOUNTER → 2025-02-07 | Outpatient (CLI) | payer OTHER, MEDICAID, SELFPAY ==
[2025-02-07 10:15] LABS: Glucose Estimated Average 128 mg/dL (80-131); Hemoglobin A1C 6.1 % Hgb (4.8-6.0)
[2025-02-07 10:16] LABS: Creatinine MALB Rnd Ur 64 mg/dL (30-125); Microalbumin Creat Ratio 58 mg/gCrea (<30); Microalbumin, Random Urine 37 mg/L (0-300)
[2025-02-07 12:07] LABS: Alanine Aminotransferase 13 U/L (10-49); Albumin, Serum 4.8 gm/dL (3.4-4.8); Albumin/Globulin Ratio 1.8 (1.2-2.2); Alkaline Phosphatase 77 U/L (46-116); Anion Gap 14 (7-16); Aspartate Amino Transferase 20 U/L (0-34); BUN/Creatinine Ratio 36 Ratio (12-20); Bilirubin,Total 0.6 mg/dL (0.3-1.2); Blood Urea Nitrogen 36 mg/dL (9-23); Calcium 9.8 mg/dL (8.3-10.6); Calcium (Corrected) 9.8 mg/dL (8.5-10.1); Carbon Dioxide 26.0 mMol/L (20.0-31.0); Cardiac Risk Estimate 3.6 RATIO (3.7-5.6); Chloride 102 mMol/L (98-107); Cholesterol 159 mg/dL (132-200); Creatinine (Component) 1.0 mg/dL (0.6-1.3); Globulin 2.6 gm/dL (2.3-3.5); Glucose 94 mg/dL (74-106); HDL Cholesterol 44 mg/dL (40-60); LDL Cholesterol,Calculated 85 mg/dL (0-130); Osmolality,Calculated 291 (275-295); Potassium 4.2 mMol/L (3.4-5.1); Sodium 142 mMol/L (136-145); Total Protein 7.4 gm/dL (5.7-8.2); Triglycerides 149 mg/dL (30-150); eGFR 56 See Note
[2025-02-07 12:35] LABS: Vitamin D 25 Hydroxy Total 35.1 ng/mL (7.3-40.2)
== END | disposition home or self-care (01) ==
LOC: COPL 08:20
PROVIDERS: PCP Family Medicine; Referring Provider Family Medicine; Visit Provider Family Medicine
DX: E11.65 Type 2 diabetes mellitus with hyperglycemia (principal); E78.1 Pure hyperglyceridemia; D50.0 Iron deficiency anemia secondary to blood loss (chronic)
CPT/HCPCS: 36415; 80053; 80061; 82043; 82306; 82570; 83036